=== PATIENT | female | born 1980 | race Caucasian/White ===

== ENCOUNTER → 2018-03-16 15:59 | Outpatient (CLI) | payer OTHER, SELFPAY | PROVIDERS: Family Provider Family Medicine; PCP Family Medicine; Visit Provider Family Medicine | DX: M79.646 Pain in unspecified finger(s) (principal) | CPT/HCPCS: 73130 ==

== ENCOUNTER 2018-03-18 06:58 | Day surgery (SDC) | payer OTHER, SELFPAY ==
[2018-03-13 11:00] LABS: Absolute Lymphocyte Count 1.36 X10^3/ul (0.83-4.51); Absolute Neutrophil Count 5.6 X10^3/uL (2.0-7.7); Basophil# 0.03 X10^3/uL; Basophil% 0.4 % (0-1); Eosinophil# 0.18 X10^3/uL; Eosinophils% 2.4 % (0-5); Hematocrit 41.7 % (37-47); Hemoglobin 13.7 g/dl (12.0-15.0); Lymphocyte # 1.36 X10^3/ul (4.0); Lymphocyte % 17.9 % (19-41); Mean Corp Hgb Conc 32.9 g/gl (32-36); Mean Corpuscular Hgb 30.5 pg (27.0-32.0); Mean Corpuscular Volume 92.9 fL (81-99); Mean Platelet Vol. 10.2 fl (6.2-12.0); Monocyte# 0.38 X10^3/uL; Neutrophil # 5.63 X10^3/uL (2.7-7.7); Neutrophil % 74.2 % (47-70); Platelet Count 302 K/mm3 (150-450); RBC Distribution Width CV 13.4 % (11.6-14.6); RBC Distribution Width SD 45.8 fl (35.1-43.9); Red Blood Count 4.49 M/mm3 (4.2-5.4); White Blood Count 7.6 K/mm3 (4.4-11.0)
[2018-03-13 11:07] LABS: POSITIVE COUNT NO; POSITIVE DIFFERENTIAL NO; POSITIVE MORPHOLOGY NO
--- NOTE | 2018-03-17 21:13 | PCM.HPOB.BLA ---
- Problem List (1) Abnormal uterine bleeding Status: Chronic (2) Uterine fibroid Status: Chronic Qualifiers: History and Physical Date of Admission: 03/18/18 Intake Visit Reasons: FU Accompanied by: Is patient in pain?: No Allergies No Known Allergies Allergy (Verified 01/19/18 11:01) Medications desogestrel 0.15 mg-ethinyl estradiol 0.03 mg tablet 1 tab PO QDAY #56 tab 01/19/18 [Rx Confirmed 01/19/18] Is last menstrual period known: Yes Last Menstral Period: 01/11/18 Post menopausal: No Patient : No : No PFSH Medical History Depression (Acute) Surgical History delivery delivered (Acute) H/O dilation and curettage (Acute) Family History Grandmother Breast cancer Social History Smoking Status: Never smoker alcohol intake: never substance use type: does not use caffeine: Yes what type of physical activity do you participate in: walking seatbelt use: always do you feel safe at home: Yes additional social history: Daniel Jaramillo 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 she hasn't taken the celexa. she is feeling better, had no bleeding and then now had breakthrough bleeding with clots. her and her are wanting to proceed with a hysterectomy Female Reproductive History Last Menstral Period: 01/11/18 Pregancy History 4 Elective abortions Hx Para 2 Spontaneous abortions Hx # Term Pregnancies Ectopic pregnancies Hx # Pregnancies Multiple births # of living children Past Pregnancies Del. Date Name GA/Weeks Outcome Route Bth Weight Infant Gen Labor Lgth Anesthesia Del Locatn Provider FOB Unknown 2011 Misti live - full term Fede Unknown 2013 Ashly live - full term WHITNEY ROS Const Constitutional: Denies poor appetite, headache(s), fever(s), increased appetite, weight gain, weight loss or fatigue ENT ENT: Denies dry mouth GI GI: Reports as per HPI; denies vomiting, nausea, abdominal pain or constipation : Reports as per HPI Skin Skin/Breast: Denies hair loss, change in hair, dry skin, breast pain, breast skin changes or breast lump Exam Const General: cooperative, healthy appearing, comfortable, no acute distress, well developed Nutritional Appearance: average body habitus Orientation: alert HENMO Head: normal to inspection, normocephalic Ears: hearing grossly normal bilaterally, external ears normal Nose: external nose normal, nares normal Face and sinus: normal facial exam Neck Neck: normal visual inspection, trachea midline, no lymphadenopathy Thyroid: thyroid normal Resp Effort & Inspection: normal respiratory effort Musc Other: gross motor intact no deficits, full bilateral strength Skin General: no rashes or lesions noted Neuro Motor: muscle tone normal throughout Assessment & Plan Problems 1. Intramural and submucous leiomyoma of uterus D25.1; D25.0 2. Abnormal uterine bleeding N93.9 Plan discussed and recommend laparoscopic hysterectomy. discussed surgical risks including risks of anesthesia, infection, bleeding, injury to bowel, bladder or blood vessels, and patient wishes to proceed with surgery. Medications Refilled: desogestrel-ethinyl estradiol 0.15-0.03 mg (Apri) take only active pills discard inactive start new pack immediately 1 tab PO QDAY Discontinued: citalopram (Celexa) Discontinued Reason: Order Completed 20 mg PO QDAY Coding Level of Care Code Off vis,est,level 4 Diagnoses Intramural and submucous leiomyoma of uterus D25.1; D25.0 Uterine leiomyoma location: intramural and submucous Abnormal uterine bleeding N93.9
[2018-03-18] VITALS (14 sets, daily range): BP systolic 130–151; BP diastolic 64–89; PULSE 70–106; RESP 14–18; TEMP 36.3–37.1; O2SAT 95–100; BMI 32.7
--- NOTE | 2018-03-18 | HYST_PTH ---
PATIENT: KRYSTA MULLINS LOC: [facility] [place] U#:[id number] AGE/SX: 37/F ROOM: RE03/18/[address]: Dr. Radha Bender MD : 1980 BED: DIS: 03/19/2018 SPEC #: [id number] RECD: 03/18/18 13:47 STATUS: TAMI MARY #: [id number] MARÍA: 03/18/18 00:[address]: Radha Bender DEPT: SURGICAL PATHOLOGY RECD BY: Dennis Wilson ENTERED: 03/18/18 13:47 SP TYPE: HYSTERECT OTHR DR: Dr. Khanh Barron MD Tissues: Uterus, NOS Procedures: Surgery Specimen Level V HEADER OPERATION: Hysterectomy, lap-assisted vagina, BSO, cystoscopy PRE-OP DIAGNOSIS: Abnormal uterine bleeding, uterine fibroids TISSUE SUBMITTED: Uterus and bilateral fallopian tubes and fibroids MICROSCOPIC DIAGNOSIS Uterus, hysterectomy: Morcellated uterus Cervix ? no pathologic change. Endometrium ? transitional endometrium. Myometrium ? leiomyomas. Right and left fallopian tubes - no pathologic change. AM:kim 03/19/18 MICROSCOPIC DESCRIPTION Slides are reviewed. GROSS DESCRIPTION Received in fixative is one container labeled with the patient's name and designated uterus. The specimen consists of a morcellated uterus received in 15 pieces ranging in size from 1.7 cm to 12 cm and in aggregate weighing 315 gm. A distinct endometrial cavity is not identified. The presumed endocervical fragment measures 6 cm in length and a diameter of 3 cm. The presumed endocervical canal appears grossly unremarkable. The presumed endometrium is light laguna measures up to 0.2 cm in thickness and is free of grossly visible mass lesions. The specimen consists primarily of multiple rubbery nodules resembling leiomyomas and ranging in size from 0.5 to 4.3 cm in greatest dimension. On cut sections, the nodules have a rubbery appearance without areas of cyst formation or necrosis. Two of the larger fragments contain fallopian tubes that are similar in appearance having an average length of 5 cm and average diameters of 0.6 cm. No mass lesions are identified. The fimbriated ends are normal in appearance. Shipbuilding Draftsperson sections are submitted in ten cassettes as follows: 1 ? ectocervix and endocervix, 2-5 ? presumed endometrium and adjacent myometrium, 6 ? largest myometrial mass, 7 ? second largest myometrial mass, 8 ? third largest myometrial mass, 9 ? one fallopian tube, 10 ? the other fallopian tube. / AM:kim 03/18/18 TC:1 CPT: 32831
[2018-03-18] MEDS: Phenazopyridine 95 MG Tablet 190 MG PO (07:41)
[2018-03-18 07:52] LABS: Internal QC Validated? YES +Cl - CLEAR BKGD; Pregnancy, Urine Negative Negative
[2018-03-18] MEDS: Vasopressin 20 UNITS/ML Vial (10:20)
[2018-03-18] MEDS: Ketorolac 30 MG/ML Syringe IV ×2 (14:54→20:37)
--- NOTE | 2018-03-18 19:26 | PCM.DC.VHY ---
Discharge Diet: No Restrictions Discharge Activity: Return to Normal Activity, May Not Drive, May Shower May resume sexual activity in: 6-8 weeks Call your doctor if your incision/area has: Continuous Slow Oozing, Sudden Increased Bleeding, Increased Pain/ Swelling, Increased Redness, Foul Smelling Discharge Call your doctor if you observe: Fever of 101 or Higher, Inability to urinate, Inability to have a bowel movement, Using more than one pad per hour Allergies/Adverse Reactions: Allergies No Known Allergies Allergy (Verified 03/11/18 10:46) Medications to take at Discharge desogestrel 0.15 mg-ethinyl estradiol 0.03 mg tablet 1 tab PO QDAY #56 tab 03/04/18 Calcium Carbonate/Vitamin D3 [Calcium 500 mg-Vit D3 600 Unit] 1 each PO DAILY 03/11/18 L.acidoph,Paracasei, B.lactis [Probiotic] 1 each PO DAILY 03/11/18 Magnesium 250 mg PO DAILY 03/11/18 Vit,Jose 74/Iron/Folic [Niva-Plus Tablet] 1 each PO DAILY 03/11/18 Naproxen [Naprosyn] 250 - 500 mg PO Q8H PRN PRN #30 tab 03/18/18 Oxycodone HCl/Acetaminophen [Percocet 5-325] 1 - 2 tablet PO Q4H PRN PRN 7 Days #15 tablet 03/18/18 The following prescriptions were given: Oxycodone HCl/Acetaminophen [Percocet 5-325] 1 - 2 tablet PO Q4H PRN PRN 7 Days #15 tablet PRN Reason: Pain Naproxen [Naprosyn] 250 - 500 mg PO Q8H PRN PRN #30 tab PRN Reason: MILD PAIN Primary Care Physician: Khanh Barron MD [Primary Care Provider] - Test Results: Test results from this visit will be discussed in further detail at your follow-up appointment, if applicable. Please Follow Up With: Radha Bender MD - [phone]
--- NOTE | 2018-03-18 19:27 | PCM.OPRPT ---
Problem List (1) Abnormal uterine bleeding Status: Chronic (2) Uterine fibroid Status: Chronic Qualifiers: Report of Operation Date of Procedure: 03/18/18 Pre-Operative Diagnosis: abNormal uterine bleeding and uterine fibroids Post-Operative Diagnosis: Same plus vesicouterine scar tissue and right simple ovarian cyst Surgery/Procedure Performed:: Laparoscopic assisted vaginal hysterectomy cystoscopy Description of Surgical Findings:: Vesicouterine scar tissue, significant pelvic congestion. Enlarged uterus weighing 333 g with multiple fibroids. Right ovary containing a 4 cm simple ovarian cyst process control technician: Delmis Echevarria Type of Anesthesia:: General Special Medications: Venu Specimen's removed: Uterus fibroids fallopian tubes Drains: Nowak Estimated Blood Loss (mL): 150 cc Fluids Replaced: Crystalloid Description of Procedure: Patient received preoperative antibiotics and SCDs were on preoperatively. Patient was taken back to the operating room and placed in the dorsal lithotomy position. General anesthesia was induced and patient was prepped and draped in normal sterile fashion. Uterine manipulator was placed inside the uterus and Nowak catheter placed in the bladder. The umbilicus was grasped with towel clamps and an intraumbilical incision was made after injecting with quarter percent Marcaine and a Veress needle entered into the abdomen confirmed to be intra-abdominal with a low opening pressure. Abdomen was insufflated with CO2 gas and the Veress needle removed and the 5 mm trocar was placed under direct visualization without complication. Right and left lower quadrants were transilluminated and injected with quarter percent Marcaine and 5 mm ports placed under direct visualization. Pelvis was well visualized see operative findings for additional information. Bilateral fallopian tubes were identified and transected with the LigaSure device across the mesosalpinx to the level of the utero-ovarian ligament which was also transected with the LigaSure device. The broad ligament was opened up by transecting the round ligament bilaterally and skeletonizing the uterine vessels bilaterally. Significant pelvic congestion was noted and care was taken to transect these vessels with great care minimizing blood loss. Significant utero vesical adhesions were noted which were taken down sharply and bluntly with the LigaSure device. The plane was developed creating a bladder flap using the LigaSure device. The uterine arteries were transected bilaterally with good visualization of the bladder and the ureters were seen to be inferior lateral to the operative area. Attention was then paid to the vaginal portion of the procedure and the cervix was grasped with Diogenes clamps and circumferentially injected with dilute vasopressin. A circumferential incision was made and the vaginal mucosa was mobilized off posteriorly and the cul-de-sac entered into sharply and a longneck speculum placed. The anterior cul-de-sac was then identified and entered into sharply. The uterosacral ligaments were clamped cut and suture ligated with 0 Monocryl bilaterally followed by the cardinal ligaments which were clamped cut and suture ligated bilaterally with 0 Monocryl. The uterus serially descended and was removed without difficulty with a combination of multiple myomectomies and morcellation vaginally. Pelvic sidewall pedicles were checked and noted to have excellent hemostasis. The vaginal mucosa was reapproximated incorporating the posterior peritoneum. This was reapproximated using 0 Vicryl [id number] sutures. Excellent hemostasis was noted. The cystoscopy was then performed and bilateral ureteral strong spray was noted and the bladder was noted to have no abnormality or lesions seen. Nowak catheter was replaced and then attention paid to the abdominal portion of the procedure again. The pelvis and cul-de-sac was well visualized and no significant active bleeding noted but some raw areas were seen on the peritoneum and therefore Venu was applied. Pressure was taken down and the areas visualized and noted of excellent hemostasis. All ports were removed under direct visualization without complication and the abdomen was desufflated of air. The instruments removed from the abdomen and the vagina vaginal sweep was negative. Port sites on the abdomen were closed with 4-0 Monocryl interrupted sutures and Steri's and windows were applied. She was awoken and taken recovery in stable condition. - Complications None
[2018-03-18] MEDS: Lactated Ringers 1,000 ML 125 ML IV (21:50)
[2018-03-19] MEDS: Acetaminophen 500 MG Tablet 1000 MG PO (01:19)
[2018-03-19 03:05] VITALS: BP 135/77; PULSE 77; RESP 16; TEMP 36.6; O2SAT 99
[2018-03-19] MEDS: Ketorolac 30 MG/ML Syringe IV ×2 (03:07→09:08)
[2018-03-19] MEDS: 0.9% NaCl Peripheral Flush Adult/Peds IV (03:07)
[2018-03-19 06:23] LABS: Hematocrit 36.6 % (37-47); Hemoglobin 12.1 g/dl (12.0-15.0); Mean Corp Hgb Conc 33.1 g/gl (32-36); Mean Corpuscular Hgb 30.6 pg (27.0-32.0); Mean Corpuscular Volume 92.4 fL (81-99); Mean Platelet Vol. 9.7 fl (6.2-12.0); Platelet Count 261 K/mm3 (150-450); RBC Distribution Width CV 13.2 % (11.6-14.6); RBC Distribution Width SD 44.3 fl (35.1-43.9); Red Blood Count 3.96 M/mm3 (4.2-5.4); White Blood Count 7.8 K/mm3 (4.4-11.0)
[2018-03-19 06:28] LABS: Scan Indicated on CBC? Y/N NO
[2018-03-19 08:07] VITALS: O2SAT 96
--- NOTE | 2018-03-19 08:27 | PCM.PROGNOTE ---
Subjective: Doing well. No SOB, CP. Up and ambulating. Plans home today - Physical Exam General: Alert, Oriented x3 Abdomen: Soft, Non-Distended, - - minimal tenderness with exam; dressing dry and intact X 3 Vital Signs Temp Pulse Resp BP Pulse Ox 97.9 F 77 16 135/77 H 99 03/19/18 03:05 03/19/18 03:05 03/19/18 03:05 03/19/18 03:05 03/19/18 03:05 Oxygen Delivery Method Room Air Weight: 196 lb 13.965 oz Body Mass Index (BMI) 32.7 Intake and Output for Last 24 Hours 03/17/18 03/18/18 03/19/18 23:59 23:59 23:59 Intake Total 2616 / 2616 2182 / 2182 Output Total 480 / 480 1500 / 1500 Balance 2136 / 2136 682 / 682 Laboratory Tests Past 24 Hrs 03/19/18 06:00 WBC 7.8 RBC 3.96 L Hgb 12.1 Hct 36.6 L MCV 92.4 MCH 30.6 MCHC 33.1 RDW 13.2 RDW Differential 44.3 H Plt Count 261 MPV 9.7 Medical Necessity - Tobacco Use Smoking Status: Never smoker Assessment/Plan LAV POD#1: Pain well controlled. Routine care. Plans home today
[2018-03-19 09:04] VITALS: BP 126/73; PULSE 79; RESP 18; TEMP 36.7; O2SAT 99
[2018-03-19] MEDS: Enoxaparin 40 MG/0.4 ML Syringe SC (09:08)
[2018-03-19 10:15] VITALS: BP 126/73; PULSE 79; RESP 18; TEMP 36.7; O2SAT 99
== END 2018-03-19 10:17 | disposition home or self-care (01) ==
LOC: SDC 07:00 → AC 07:01 → MS3 08:58
PROVIDERS: Family Provider Family Medicine; PCP Family Medicine; Visit Provider Obstetrics & Gynecology
PROC: 0UT9FZZ Resection of Uterus, Via Natural or Artificial Opening With Percutaneous Endoscopic Assistance (ICD-10-PCS; CPT 52000; principal; 2018-03-18 08:05)
DX: N93.9 Abnormal uterine and vaginal bleeding, unspecified (principal); N83.291 Other ovarian cyst, right side; D25.1 Intramural leiomyoma of uterus; D25.0 Submucous leiomyoma of uterus
CPT/HCPCS: 00840; 52000; 58552; 36415; 81025; 85025; 85027; 86850; 86900; 88307; J7120; A4216; J2405

== ENCOUNTER → 2018-08-02 10:02 | Outpatient (CLI) | payer OTHER, SELFPAY ==
--- NOTE | 2018-08-02 10:15 | US_ITS ---
STUDY: ABDOMINAL ULTRASOUND REASON FOR EXAM: Female, 37 years old. Epigastric pain extending to the right upper quadrant in the back TECHNIQUE: Transabdominal ultrasound was performed with real-time and static morel scale imaging. TECHNICAL QUALITY: Adequate. COMPARISON: None. FINDINGS: Liver: The liver measures 14.2 cm. There is normal echogenicity of the liver. The bile ducts are within normal limits. There is hepatic color flow. The direction of portal flow is hepatopetal. Hypoechoic mass in the posterior right lobe the liver measuring 3.3 x 2.9 x 3.0 cm. Likely a hemangioma. Gallbladder: Normal distended gallbladder. The gallbladder wall measures 2 mm. There is a negative sonographic Galvez's sign. There is no pericholecystic fluid. There are no gallstones. Common Bile Duct (C.B.D.): The common bile duct measures 3 mm. Pancreas: Normal size of the head, body and tail of the pancreas. There is normal echogenicity of the pancreas. There is no demonstrated pancreatic mass or cyst. Spleen: Normal size of the spleen. The spleen measures 13.9 cm. Right Kidney: Normal size of the right kidney. The right kidney measures 12.4 cm. Normal renal cortex. The right cortex measures 1.3 cm. There is no demonstrated renal mass or cyst. There is no right hydronephrosis. Left Kidney: Normal size of the left kidney. The left kidney measures 12.1 cm. Normal renal cortex. The left cortex measures 1.5 cm. There is no demonstrated renal mass or cyst. There is no left hydronephrosis. Aorta: Within normal limits I.V.C.: The IVC is patent. There is no ascites. US/Abdomen Complete IMPRESSION: Hyperechoic lesion in the right lobe of the liver, likely hemangioma. Remainder is within normal limits. Electronically Signed: Niranjan Sharif DO at 11:36 EST Tel , Service support ,
[2018-08-02 10:35] LABS: AST(SGOT) 19 U/L (15-37); Alanine Aminotransfer ALT/SGPT 22 U/L (13-56); Albumin, Serum 4.3 g/dL (3.2-5.0); Alkaline Phosphatase 85 U/L (45-117); Anion Gap 10 (5-15); BUN 12 mg/dL (7-18); BUN/Creat Ratio 14.4 RATIO (10-20); Calcium,Total 9.5 mg/dL (8.5-10.1); Chloride 105 mmol/L (98-107); Creatinine, Serum 0.84 mg/dL (0.55-1.02); EST Glomerular Filtration Rate 82 mL/min (>60); Est Glom Filt Rate - Afr Amer 100 mL/min (>60); Globulin 4.1 g/dL (2.2-4.2); Glucose 86 mg/dL (74-106); Lipase 140 U/L (73-393); Potassium 3.9 mmol/L (3.5-5.1); Protein, Total 8.4 g/dL (6.4-8.2); Sodium Level 140 mmol/L (136-145)
== END ==
PROVIDERS: Family Provider Family Medicine; PCP Family Medicine; Referring Provider Nurse Practitioner Family; Visit Provider Nurse Practitioner Family
DX: R10.13 Epigastric pain (principal)
CPT/HCPCS: 36415; 76700; 80053; 83690

== ENCOUNTER → 2018-08-03 16:33 | Outpatient (CLI) | payer OTHER, SELFPAY ==
[2018-04-29 13:52] VITALS: BMI 32.9
[2018-08-03 17:04] LABS: Absolute Lymphocyte Count 2.05 X10^3/ul (0.83-4.51); Absolute Neutrophil Count 5.1 X10^3/uL (2.0-7.7); Basophil# 0.02 X10^3/uL; Basophil% 0.3 % (0-1); Eosinophil# 0.15 X10^3/uL; Eosinophils% 1.9 % (0-5); Hematocrit 43.2 % (37-47); Hemoglobin 14.3 g/dl (12.0-15.0); Lymphocyte # 2.05 X10^3/ul (4.0); Mean Corp Hgb Conc 33.1 g/gl (32-36); Mean Corpuscular Hgb 31.2 pg (27.0-32.0); Mean Corpuscular Volume 94.1 fL (81-99); Monocyte# 0.53 X10^3/uL; Monocyte% 6.7 % (0-10); Neutrophil # 5.12 X10^3/uL (2.7-7.7); POSITIVE COUNT NO; POSITIVE DIFFERENTIAL NO; POSITIVE MORPHOLOGY NO; Platelet Count 261 K/mm3 (150-450); RBC Distribution Width CV 13.3 % (11.6-14.6); RBC Distribution Width SD 45.7 fl (35.1-43.9); Red Blood Count 4.59 M/mm3 (4.2-5.4); White Blood Count 7.9 K/mm3 (4.4-11.0)
== END ==
PROVIDERS: Family Provider Family Medicine; PCP Family Medicine; Referring Provider Nurse Practitioner Family; Visit Provider Nurse Practitioner Family
DX: R10.13 Epigastric pain (principal)
CPT/HCPCS: 36415; 85025

== ENCOUNTER → 2019-01-07 14:30 | Outpatient (CLI) | payer OTHER, SELFPAY ==
[2018-04-29 13:52] VITALS: BMI 32.9
--- NOTE | 2019-01-07 | IMM_PTH ---
PATIENT: KRYSTA MULLINS LOC: [facility] U#:[id number] AGE/SX: 44/F ROOM: RE01/07/[address]: Dr. Khanh Barron MD : 1980 BED: DIS: SPEC #: [id number] RECD: 01/10/19 11:34 STATUS: TAMI REBoubacar #: [id number] MARÍA: 01/07/19 00:[address]: Khanh Barron DEPT: IMMUNOHISTOCHEMISTRY RECD BY: Sandro Manzano Tissues: Arm, NOS Procedures: DESMIN (add) Smooth Muscle Actin [facility]YSIC[facility] IN[facility] [place] [id number] SPECIMEN INFORMATION: Tissue Source: Mass, right upper arm, soft tissue Clinical Info: Mass (subcutaneous) right upper arm Specimen Number: [id number] CPT code: 47122, 55965 METHODOLOGY: Deparaffinized sections of prefer/formalin-fixed tissue or PAP/DQ stained slides are incubated with monoclonal/polyclonal antibodies/oligonucleotide probes. Localization is made via biotin free immunoperoxidase method. Appropriate controls are performed and reacted as expected. Results on target cell population are indicated in the following table: RESULTS: ANTIBODY / CLONE RESULT Actin (1A4) positive Desmin (CE-R-11) positive These tests were developed and their performance characteristics determined by [facility]. They may not have been cleared or approved by the U.S. Food and Drug Administration. The FDA has determined that such clearance or approval is not necessary. INTERPRETATION: Mass, right upper arm soft tissue: Leiomyoma
--- NOTE | 2019-01-07 10:45 | MASS_PTH ---
PATIENT: KRYSTA MULLINS LOC: [facility] U#:[id number] AGE/SX: 44/F ROOM: RE01/07/[address]: Dr. Khanh Barron MD : 1980 BED: DIS: SPEC #: [id number] RECD: 01/07/19 12:03 STATUS: TAMI MARY #: [id number] MARÍA: 01/07/19 10:[address]: Khanh Barron DEPT: SURGICAL PATHOLOGY RECD BY: Rand Douglas Tissues: Arm, NOS Procedures: Surgery Specimen Level IV HEADER OPERATION: Excision right upper arm PRE-OP DIAGNOSIS: Mass (subcutaneous) right upper arm TISSUE SUBMITTED: Mass right upper arm soft tissue MICROSCOPIC DIAGNOSIS Mass right upper arm soft tissue: Consistent with subcutaneous leiomyoma. See comment and RF report. FA:kim 01/10/19 COMMENT Immunohistochemistry ([id number]) supports the above diagnosis. IDC with Dr. Maycol Holcomb MD who cocurs with above diagnosis. MICROSCOPIC DESCRIPTION Slides are reviewed. GROSS DESCRIPTION Received in fixative is one container labeled with the patient's name and designated mass right upper arm soft tissue. The specimen consists of a laguna-white nodular portion of firm tissue measuring 0.9 x 0.9 x 0.8 cm. The cut surface demonstrates a central cystic structure measuring 0.2 cm in diameter. The specimen is totally submitted in one cassette. / CE:ikm 01/07/19 TC:1 CPT: 88343
== END ==
PROVIDERS: Family Provider Family Medicine; PCP Family Medicine; Referring Provider Family Medicine; Visit Provider Family Medicine
DX: M79.9 Soft tissue disorder, unspecified (principal)
CPT/HCPCS: 88305; 88341; 88342

== ENCOUNTER → 2020-01-06 08:16 | Outpatient (CLI) | payer OTHER, SELFPAY ==
[2020-01-05 08:48] VITALS: BMI 32.9
[2020-01-06 08:41] LABS: Cholesterol 130 mg/dL (200); Glucose 90 mg/dL (74-106); High Density Lipoprotein 78 mg/dL; Triglycerides 47 mg/dL; Very Low Density Lipoprotein 9 mg/dL (5-40)
== END ==
PROVIDERS: PCP Family Medicine; Referring Provider Obstetrics & Gynecology; Visit Provider Obstetrics & Gynecology
DX: Z13.220 Encounter for screening for lipoid disorders (principal); Z13.1 Encounter for screening for diabetes mellitus
CPT/HCPCS: 36415; 80061; 82947

== ENCOUNTER → 2020-03-27 16:03 | Outpatient (CLI) | payer OTHER, SELFPAY ==
[2020-01-05 08:48] VITALS: BMI 32.9
== END ==
LOC: MFPLAB 16:04 → LABSPEC 16:04
PROVIDERS: PCP Family Medicine; Referring Provider Family Medicine; Visit Provider Family Medicine
DX: Z20.828 Contact with and (suspected) exposure to other viral communicable diseases (principal)
CPT/HCPCS: 87635; U0003

== ENCOUNTER 2020-04-11 08:58 | Observation (INO) | payer OTHER, SELFPAY ==
[2020-01-05 08:48] VITALS: BMI 32.9
[2020-04-11] VITALS (12 sets, daily range): BP systolic 108–143; BP diastolic 62–100; PULSE 78–109; RESP 17–19; TEMP 36.3–37.3; O2SAT 94–100; BMI 26.2; BMI 26.3
--- NOTE | 2020-04-11 09:45 | EKG12_ITS ---
Test Reason : Blood Pressure : / mmHG Vent. Rate : 087 BPM Atrial Rate : 087 BPM P-R Int : 154 ms QRS Dur : 108 ms QT Int : 368 ms P-R-T Axes : 074 045 063 degrees QTc Int : 442 ms Normal sinus rhythm Normal ECG Confirmed by DARLEEN VITALE, CADY ([id number]), electronic news gathering editor WALLACE SANDRA ([id number]) on 04/13/2020 1:06:09 PM Referred By: Confirmed By:CADY MOREJON MD
--- NOTE | 2020-04-11 09:53 | ED.DCSUM_ITS ---
- ER Visit Summary Date of Service: 04/11/20 Chief Complaint: Chest pain History of Present Illness: The patient is a 39 F presenting with chest pain. Patient states this started yesterday. She has had intermittent episodes of sharp chest pain. She was diagnosed with COVID on March 27, 2020. She judah es fever or cough currently. She has had nausea and diarrhea. She lost her sense of taste and smell. She also complains of right upper quadrant abdominal pain. She tried Tylenol and ibuprofen at home. Physical Examination: Vitals are stable. Patient is afebrile. Alert no acute distress. HEENT exam is unremarkable. Neck is supple. Lungs are clear and equal bilaterally. Heart is regular and tachycardic Abdomen is soft right upper quadrant tenderness with no guarding or rebound Extremities are unremarkable. Skin is warm and dry. No focal neurologic deficit. Remainder of exam is unremarkable. Emergency Department Course and Treatment: EKG is sinus rhythm rate of 87 with no acute ischemic changes. CBC, chemistries unremarkable. Liver lipase are normal. Urinalysis unremarkable. Troponin is negative. hCG negative. CTA chest shows focal irregular increased markings at the right lung base posteriorly. This may represent a focal area of either early infiltrate or atelectasis. No consolidation is seen. With ambulation at bedside her pulse ox is 87 to 88% on room air. She becomes dyspneic with ambulation and with talking. Discussed with hospitalist for observation. Disposition: Observation Impression: COVID, hypoxia This note was generated with [employer] dictation software. It may contain incorrect words, spelling, and punctuation that were not noted in review of the chart prior to signing ED Disposition - Plan for ED Patient: Referrals: Khanh Sears MD [Primary Care Provider] -
[2020-04-11 10:02] LABS: Absolute Lymphocyte Count 1.13 X10^3/uL (0.83-4.51); Absolute Neutrophil Count 4.2 X10^3/uL (2.0-7.7); Basophil# 0.02 X10^3/uL; Basophil% 0.3 % (0-1); Eosinophil# 0.14 X10^3/uL; Eosinophils% 2.4 % (0-5); Hematocrit 43.7 % (37-47); Hemoglobin 14.5 g/dL (12.0-15.0); Lymphocyte # 1.13 X10^3/ul (4.0); Mean Corp Hgb Conc 33.2 g/dL (32-36); Mean Corpuscular Hgb 31.5 pg (27.0-32.0); Mean Corpuscular Volume 94.8 fL (81-99); Mean Platelet Vol. 9.4 fl (6.2-12.0); Monocyte# 0.41 X10^3/uL; Monocyte% 6.9 % (0-10); NRBC Flagged by Analyzer 0 % (0-5); Neutrophil # 4.23 X10^3/uL (2.7-7.7); Neutrophil % 71.2 % (47-70); Platelet Count 269 K/mm3 (150-450); RBC Distribution Width CV 11.9 % (11.6-14.6); RBC Distribution Width SD 40.9 fl (35.1-43.9); Red Blood Count 4.61 M/mm3 (4.2-5.4); White Blood Count 5.9 K/mm3 (4.4-11.0)
--- NOTE | 2020-04-11 10:07 | NURSING ---
NO OLD EKGS
[2020-04-11 10:12] LABS: Internal QC Validated? YES +Cl - CLEAR BKGD; Pregnancy, Serum, hCG Quali. NEGATIVE Negative
[2020-04-11 10:14] LABS: ALB/GLOB Ratio 1.1 RATIO (0.9-2.4); AST(SGOT) 31 U/L (15-37); Alanine Aminotransfer ALT/SGPT 48 U/L (13-56); Albumin, Serum 4.3 g/dL (3.2-5.0); Alkaline Phosphatase 89 U/L (45-117); Anion Gap 2 (5-15); BUN 18 mg/dL (7-18); BUN/Creat Ratio 22.2 RATIO (10-20); Calcium,Total 9.5 mg/dL (8.5-10.1); Chloride 106 mmol/L (98-107); Creatinine, Serum 0.81 mg/dL (0.55-1.02); EST Glomerular Filtration Rate 85 mL/min (>60); Est Glom Filt Rate - Afr Amer 102 mL/min (>60); Estimated Creatinine Clearance 85.57 ml/min; Glucose 91 mg/dL (74-106); Lipase 141 U/L (73-393); Potassium 4.1 mmol/L (3.5-5.1); Protein, Total 8.3 g/dL (6.4-8.2); Sodium Level 140 mmol/L (136-145)
--- NOTE | 2020-04-11 10:48 | CT_ITS ---
STUDY: CTA CHEST REASON FOR EXAM: Female, 39 years old. +COVID WITH SOB AND CHEST TIGHTNESS RADIATION DOSAGE (If Supplied By Facility): CTDIvol = ( 5.10 ) mGy, DLP = ( 142.85 ) mGycm TECHNIQUE: The examination was performed with the intravenous administration of IV 100mL Isovue-370. Post-processing of the angiographic images was performed, with multiplanar reformation and 3D reconstruction. Individualized dose optimization techniques were used for this CT. COMPARISON: None. FINDINGS: Normal enhancement of the main pulmonary artery and right and left pulmonary arteries. Normal enhancement of the bilateral peripheral pulmonary arteries. There is no demonstrated pulmonary embolism. Normal thoracic aorta and visualized great vessels. There is no demonstrated aortic dissection. Normal heart and pericardium. Normal mediastinum. Normal hilar regions. Normal visualized trachea and bronchi. The lungs are well expanded. Focal area of increased density in the posterior aspect of the right lower lobe. No definite consolidation is seen. Normal pleura. Normal chest wall structures. Normal osseous structures. Normal visualized upper abdomen. CT/CTA Chest W/WO Contrast IMPRESSION: Focal irregular increased markings at the right lung base posteriorly. This may represent a focal area of either early infiltrate or atelectasis. No consolidation is seen. Electronically Signed: Chidi Dunham, at 11:10 EDT , Service support ,
[2020-04-11 10:51] LABS: Mucous, Urine 0 SEEN /hpf (<or=2+); Red Blood Cells-Urine 0 SEEN /hpf (0-5)
[2020-04-11 10:55] LABS: Color, Urine Straw (Yellow); Glucose, Dipstick Normal (Normal); Ketone-Dipstick Negative (Negative); Leukocyte Esterase-Dipstick Negative /ul (Negative); Nitrite-Dipstick Negative (Negative); Occult Blood-Urine Negative /ul (Negative); Protein-Dipstick Negative (Negative); Specific Gravity, Urine 1.005 (1.002-1.030); Urine Bilirubin Dipstick Negative (Negative); Urine Clarity Clear (Clear); Urine Urobilinogen Normal (Normal)
[2020-04-11 11:02] LABS: Bacteria 1+ /hpf (None Seen); Squamous Epithelial Cells - UA 0-5 SEEN /hpf (5-10); White Blood Cells 0-5 SEEN /hpf (0-5)
[2020-04-11 11:08] LABS: Amorphous Sediment 1+
--- NOTE | 2020-04-11 12:01 | NURSING ---
DR YVON GARCIA
--- NOTE | 2020-04-11 12:13 | NURSING ---
MED SURG WHITE COVID, HYPOXIA
--- NOTE | 2020-04-11 12:16 | HP.PCM_ITS ---
Problem List (1) Hypoxia Status: Acute (2) COVID-19 Status: Acute (3) History of depression Status: Chronic History of Present Illness Date of Admission: 04/11/20 Chief Complaint: Pleuritic chest pain, dyspnea, nausea, emesis and loose stools, recent + COVID testing. The patient is a 39 y/o F w/ PMHx: Post- depression history otherwise healthy who presents to the [facility] ED on 04/11/20 with history of recent onset more mild COVID type symptoms per her spouse on 03/17 with positive testing on 03/22/2020 prompting his quarantine with then onset of symptoms for this patient on 03/25/2020 including headache, sinus pressure and discomfort in addition to congestion and rhinorrhea concurrently as well as body aches and low-grade temperatures with cough following starting on 03/26/2020 and associated loss of taste or smell now returned completing a 10-day required quarantine per the health department following which she felt some improvement and thought she was improved except noted right sided chest discomfort 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 Work-up in the ED included T 97.3, heart rate 109, BP 143/87, respiratory rate 18, noted to be 100% on room air however with ambulation patient desaturated to 87%, CBC with WC 5.9, hemoglobin 14.5, platelet 269 without market shift, d-dimer less than 0.27, CMP unremarkable, troponin less than 0.015, lipase 141, negative serum testing, unremarkable urinalysis, chest CTA with a focal irregular increased marking at the right lung base posteriorly possibly atelectasis versus early infiltrate with no evidence of consolidation. 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 Psychiatric History: - - Hx post- depression, resolved. [employer] History: spontaneous , uterine fibroids Lives: Spouse/ Significant Other - Lives with her spouse and 2 children. Smoking Status: Never smoker Tobacco Use: Non-smoker Alcohol: None Drugs: None - *Family History Maternal Family History: Family History (Last Reviewed 01/05/20 @ 08:48 by Marisela Garrett) Grandmother Breast cancer History Items: - - She denies any market maternal family history including heart disease, diabetes, cancer. Paternal Family History: Family History (Last Reviewed 01/05/20 @ 08:48 by Marisela Garrett) Grandmother Breast cancer History Items: Hypertension Review of Systems Constitutional: Reports: Anorexia, Malaise, Weakness, Fatigue. Denies: Chills, Fever, Weight Change HEENT: Reports: Head Aches, Nasal Congestion, Sinus Congestion, Sinus Drainage, Sore Throat Cardiovascular: Reports: Chest Pain. Denies: Chest Pressure, Chest Tightness, Light Headedness, Orthopnea, Palpitations, Syncope Respiratory: Reports: Cough, Pleuritic Pain, Shortness of Breath, Shortness of breath at rest, Shortness of breath upon exertion. Denies: Sputum production, Wheezing Gastrointestinal: Reports: Abdominal Pain, Diarrhea, Nausea, Vomiting Genitourinary: Denies: Dysuria Musculoskeletal: Reports: Back Pain, Joint Pain, Muscle pain. Denies: Joint Tenderness Skin: Denies: Rash, Wounds Neurological: Denies: Numbness, Tingling, Focal weakness Psychiatric: Reports: Depression - Hx depression, resolved.. Denies: Anxiety, Homicidal Ideations, Suicidal Ideations Hematologic/ Lymphatic: Denies: Easy Bruising, Easy Bleeding VTE Information - Inpt Only VTE Present on Admission: No VTE Mechan Device Prophylaxis: SCD's VTE Pharm Prophylaxis ordered?: Yes Patient Problems: Active and Suspected Problems (Last Reviewed 01/05/20 @ 08:48 by Marisela Garrett) Hypoxia (Acute) COVID-19 (Acute) Subjective: Patient seated upright in the ED bed, anxious, tearful with some of the discussions secondary to ongoing issues with COVID over the last month. Objective: Physical Examination: General: awake, alert, oriented x 3 and cooperative, seated upright in the ED bed, anxious and tearful with some discussions. Skin: normal color, turgor, no icterus, cyanosis except notable rosacea to the face and some facial acne around where the mask has been. HEENT: AT/NC, EOMI, PERRLA, mildly dry MM, no carotid bruits or JVD noted. Lungs: Diminished breath sounds, decreased effort, shallow breaths, greater bases, obvious rales or rhonchi even at the right base, no wheezing. Heart: Tachycardic with regular rhythm; no gallop, rub audible. Abdomen: soft, NTTP, mildly distended, hypoactive bowel sounds, no obvious HSM. Extremities: no cyanosis, clubbing, or edema. Neurological: patient awake, alert, oriented x 3; cognitive function intact; pupils equally reactive to light and accomodation; cranial nerves II-XII grossly normal, moving all 4 extremities, no focal deficits, strength mildly to moderately degree secondary to acute presentation. Psychiatric: affect appears fatigued, anxious, tearful, frustrated with ongoing symptoms secondary to COVID over the last month, no specific depressive feelings. - Physical Exam Vitals/I&O's: Vital Signs Temp Pulse Resp BP Pulse Ox 97.3 F L 109 H 18 143/87 H 100 04/11/20 09:03 04/11/20 09:03 04/11/20 09:03 04/11/20 09:03 04/11/20 09:03 Weight: 158 lb Body Mass Index (BMI) 26.2 Laboratory Results 04/11/20 09:35: WBC 5.9, RBC 4.61, Hgb 14.5, Hct 43.7, MCV 94.8, MCH 31.5, MCHC 33.2, RDW Std Deviation 40.9, RDW Coeff of [place]art[place] 11.9, Plt Count 269, MPV 9.4, Immature Gran % (Auto) 0.200, Neut % (Auto) 71.2 H, Lymph % (Auto) 19.0, [place] % (Auto) 6.9, Eos % (Auto) 2.4, Baso % (Auto) 0.3, Absolute Neuts (auto) 4.2, Absolute Lymphs (auto) 1.13, Nucleated RBC % 0 04/11/20 09:35: Sodium 140, Potassium 4.1, Chloride 106, Carbon Dioxide 32.0, Anion Gap 2 L, BUN 18, Creatinine 0.81, Estim Creat Clear Calc 85.57, Est GFR (MDRD) Af Amer 102, Est GFR (MDRD) Non-Af 85, BUN/Creatinine Ratio 22.2 H, Glucose 91, Calcium 9.5, Total Bilirubin 0.70, AST 31, ALT 48, Alkaline Phosphatase 89, Troponin I < 0.015, Total Protein 8.3 H, Albumin 4.3, Globulin 4.0, Albumin/Globulin Ratio 1.1, Lipase 141 04/11/20 09:35: Serum , Qual NEGATIVE 04/11/20 10:35: Urine Color Straw, Urine Clarity Clear, Urine pH 7.0, Ur Sp ecific [place] 1.005, Urine Protein Negative, Urine Glucose (UA) Normal, Urine Ketones Negative, Urine Occult Blood Negative, Urine Nitrite Negative, Urine Bilirubin Negative, Urine Urobilinogen Normal, Ur Leukocyte Esterase Negative, Urine RBC 0 SEEN, Urine WBC 0-5 SEEN, Ur Squamous Epith Cells 0-5 SEEN, Amorphous Sediment 1+, Urine Bacteria 1+, Urine Mucus 0 SEEN Assessment/Plan All Active Problems (Last Reviewed 01/05/20 @ 08:48 by Marisela Garrett) Hypoxia (Acute) COVID-19 (Acute) Abnormal uterine bleeding (Resolved) Uterine fibroid (Resolved) The patient is a 39 y/o F w/ PMHx: Post- depression history otherwise healthy who presents to the [facility] ED on 04/11/20 with history of recent onset more mild COVID type symptoms per her spouse on 03/17 with positive testing on 03/22/2020 prompting his quarantine with then onset of symptoms for this patient on 03/25/2020 including headache, sinus pressure and discomfort, congestion and rhinorrhea, body aches, low-grade temperatures, completing a 10-day required quarantine with now onset worsening right sided chest discomfort, nausea, emesis, abdominal cramping and diarrhea over the last several days. 1. Worsened dyspnea, pleuritic chest pain secondary to acute viral syndrome, COVID-19: Patient diagnosed on 03/27/2020 with coronavirus, completed a 10-day quarantine, clinically improved initially but over the last several days has had recurrent dyspnea, worsening pleuritic pain, nausea, emesis and diarrhea prompting ED evaluation. CTPA with no obvious evidence of consolidation, no WBC elevation or left shift, lower suspicion for over lapping bacterial infection. Will admit to the COVID unit given new symptoms especially with diarrhea secondary to concerns for shedding, maintain on judicious IV fluids, allow diet if able to tolerate, PRN antiemetic regimen, will maintain on scheduled Toradol for pleuritic discomfort likely secondary to atelectasis, will obtain procalcitonin, CRP, CPK, Ferritin, LDH, D-dimer as COVID markers, continue supportive care, plan repeat AM oxygenation testing for discharge planning. Discussed case with Infectious Disease and given her timeline will continue in- house isolation, but will not maintain on isolation at discharge but continue aggressive mask wearing. Also given re-presentation agreed with decadron administration. 2. History of Post- depression: Resolved, not on any treatments, several years prior following loss of two pregnancies and of her grandfather. 3. DVT prophylaxis: SCDs, lovenox. OBSV E&M: 35297 Initial observation care L3
--- NOTE | 2020-04-11 12:21 | NURSING ---
CVICU 202
[2020-04-11] MEDS: 0.9% Normal Saline 1,000 ML 150 ML IV ×2 (14:02→21:06)
[2020-04-11 14:29] LABS: CRP 6.97 mg/L (0.0-3.0); Ferritin 169 ng/mL (8-252); LDH 169 U/L (84-246); Magnesium 2.3 mg/dL (1.6-2.6)
[2020-04-11 14:38] LABS: Procalcitonin < 0.01 ng/mL (0.00-0.09)
[2020-04-11] MEDS: Enoxaparin 30 MG/0.3 ML Syringe SC ×2 (14:49→21:05)
[2020-04-11] MEDS: Ketorolac 30 MG/ML Syringe IV ×2 (14:50→21:11)
[2020-04-11] MEDS: 0.9% Saline Lock 10 ML Syringe IV ×3 (14:51→21:12)
[2020-04-11 15:11] LABS: D-Dimer Quantitative (DVT/PE) < 0.27 FEU/ug/m (0.27-0.49)
[2020-04-11] MEDS: dexAMETHasone 4 MG/ML Vial 6 MG IV (16:46)
[2020-04-11] MEDS: Acetaminophen 325 MG Tablet 650 MG PO ×2 (16:53→22:32)
[2020-04-11] MEDS: Famotidine 20 MG Tablet PO (21:06)
[2020-04-11] MEDS: MELATONIN 3 MG TABLET PO (22:31)
[2020-04-12] VITALS (10 sets, daily range): BP systolic 102–130; BP diastolic 59–76; PULSE 68–84; RESP 11–13; TEMP 36.6–36.9; O2SAT 98–100
[2020-04-12] MEDS: 0.9% Normal Saline 1,000 ML 150 ML IV (03:21)
[2020-04-12] MEDS: Acetaminophen 325 MG Tablet 650 MG PO ×2 (03:41→09:07)
[2020-04-12 03:58] LABS: Absolute Lymphocyte Count 0.72 X10^3/uL (0.83-4.51); Absolute Neutrophil Count 4.2 X10^3/uL (2.0-7.7); Basophil# 0.01 X10^3/uL; Basophil% 0.2 % (0-1); Eosinophil# 0.01 X10^3/uL; Eosinophils% 0.2 % (0-5); Hemoglobin 12.8 g/dL (12.0-15.0); Lymphocyte # 0.72 X10^3/ul (4.0); Lymphocyte % 14.2 % (19-41); Mean Corp Hgb Conc 32.8 g/dL (32-36); Mean Corpuscular Hgb 31.1 pg (27.0-32.0); Mean Corpuscular Volume 94.9 fL (81-99); Mean Platelet Vol. 9.5 fl (6.2-12.0); Monocyte# 0.18 X10^3/uL; Monocyte% 3.5 % (0-10); NRBC Flagged by Analyzer 0 % (0-5); Neutrophil # 4.15 X10^3/uL (2.7-7.7); Neutrophil % 81.7 % (47-70); Platelet Count 258 K/mm3 (150-450); RBC Distribution Width CV 11.8 % (11.6-14.6); RBC Distribution Width SD 41.1 fl (35.1-43.9); Red Blood Count 4.11 M/mm3 (4.2-5.4); White Blood Count 5.1 K/mm3 (4.4-11.0)
[2020-04-12 04:13] LABS: AST(SGOT) 19 U/L (15-37); Alanine Aminotransfer ALT/SGPT 36 U/L (13-56); Albumin, Serum 3.5 g/dL (3.2-5.0); Alkaline Phosphatase 71 U/L (45-117); Anion Gap 5 (5-15); BUN 15 mg/dL (7-18); BUN/Creat Ratio 24.8 RATIO (10-20); Calcium,Total 8.3 mg/dL (8.5-10.1); Chloride 109 mmol/L (98-107); Creatinine, Serum 0.61 mg/dL (0.55-1.02); EST Glomerular Filtration Rate 118 mL/min (>60); Est Glom Filt Rate - Afr Amer 143 mL/min (>60); Estimated Creatinine Clearance 113.62 ml/min; Globulin 3.4 g/dL (2.2-4.2); Glucose 119 mg/dL (74-106); Potassium 4.2 mmol/L (3.5-5.1); Protein, Total 6.9 g/dL (6.4-8.2); Sodium Level 140 mmol/L (136-145)
[2020-04-12] MEDS: 0.9% Saline Lock 10 ML Syringe IV ×2 (05:47→09:08)
[2020-04-12] MEDS: Ketorolac 30 MG/ML Syringe IV (05:47)
--- NOTE | 2020-04-12 09:06 | DCINST_ITS ---
- Discharge Diagnoses Current Active Problems: Current Active and Chronic Problems (Last Reviewed 01/05/20 @ 08:48 by Marisela Garrett) Worsened dyspnea, pleuritic chest pain secondary to viral syndrome, COVID-19 with exertional hypoxia in the ED (87% reported) You will use the following diet at home:: No restrictions Your food should be the consistency of: Regular Your liquids should be the consistency of: Regular/Thin Discharge Activity: - - Advise routine moderate activity until improved with resolution of your associated gastrointestinal and pulmonary symptoms. Call your doctor if you observe: Fever of 101 or Higher, Inability to urinate, Inability to have a bowel movement, Shortness of breath - Worsening., Dizziness, Fainting spells, Chest pain - Worsening., Uncontrolled pain Instructions: ED Chest Pain Noncardiac Ch, ED Chest Pain Pleurisy Additional Instructions: During the admission you were started on oral steroids which need to continue until completion as well as medications to assist with your right sided chest discomfort (mobic). We strongly encourage continued incentive spirometer (breathing appartus from hospital as discussed) 10x/hr e very hour during the daytime to assist with improvement. You ARE NOT on any type of quarantine per discussions with infectious disease. If you have ongoing pain to the right chest (clot, new pneumonia ruled out during admission) please see your primary care physician to assure nothing else is developing. Allergies/Adverse Reactions: Allergies albuterol Adverse Reaction (Verified 04/11/20 14:34) tachycardia Medications to take at Discharge Dexamethasone [Decadron] 6 mg PO DAILY 9 Days #9 tab 04/12/20 Meloxicam [Mobic] 15 mg PO DAILY #7 tab 04/12/20 The following prescriptions were given: Dexamethasone [Decadron] 6 mg PO DAILY 9 Days #9 tab Transmission Status: Pending to [facility] Meloxicam [Mobic] 15 mg PO DAILY #7 tab Transmission Status: Pending to [facility] Primary Care Physician: Khanh Sears MD [Primary Care Provider] - Please follow up with your Primary Care Physician in: Follow-up within 3-5 days to review admission. Test Results: Test results from this visit will be discussed in further detail at your follow- up appointment, if applicable. Proposed Discharge Date: 04/12/20
[2020-04-12] MEDS: Famotidine 20 MG Tablet PO (09:07)
[2020-04-12] MEDS: Enoxaparin 30 MG/0.3 ML Syringe SC (09:07)
--- NOTE | 2020-04-12 09:11 | NURSING ---
waiting on additional decadron from pharmacy to equal ordered dose
[2020-04-12] MEDS: dexAMETHasone 4 MG/ML Vial 6 MG IV (09:37)
--- NOTE | 2020-04-12 10:52 | PCM.DC.SUM ---
Discharge Date and Diagnosis - Problem List Patient Problems: Active and Suspected Problems (Last Reviewed 01/05/20 @ 08:48 by Marisela Garrett) Hypoxia (Acute) COVID-19 (Acute) Date of Admission: 04/11/20 Date of Discharge: 04/12/20 - Primary Discharge Diagnosis Acute Problems: Active Problems (Last Reviewed 01/05/20 @ 08:48 by Marisela Garrett) Worsened dyspnea, pleuritic chest pain secondary to viral syndrome, COVID-19 with exertional hypoxia in the ED (87% reported) - Secondary Discharge Diagnosis Chronic Problems: Chronic Problems (Last Reviewed 01/05/20 @ 08:48 by Marisela Garrett) History of depression (Chronic) Hospital Course and Treatment Operations: None Procedures: - - CTA chest, CXR, oxygenation assessment. Summary of Care Provided: The patient is a 39 y/o F w/ PMHx: Post- depression history otherwise healthy who presented to the [facility] ED on 04/11/20 with history of recent onset more mild COVID type symptoms per her spouse on 03/17 with positive testing on 03/22/2020 prompting his quarantine with then onset of symptoms for this patient on 03/25/2020 including headache, sinus pressure and discomfort in addition to congestion and rhinorrhea concurrently as well as body aches and low-grade temperatures with cough following starting on 03/26/2020 and associated loss of taste or smell now returned completing a 10-day required quarantine per the health department following which she felt some improvement and thought she was improved except noted right sided chest discomfort 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 Work-up in the ED included T 97.3, heart rate 109, BP 143/87, respiratory rate 18, noted to be 100% on room air however with ambulation patient desaturated to 87%, CBC with WC 5.9, hemoglobin 14.5, platelet 269 without market shift, d-dimer less than 0.27, CMP unremarkable, troponin less than 0.015, lipase 141, negative serum testing, unremarkable urinalysis, chest CTA with a focal irregular increased marking at the right lung base posteriorly possibly atelectasis versus early infiltrate with no evidence of consolidation. The patient was admitted to the COVID unit given new symptoms especially with diarrhea secondary to concerns for shedding, maintained on judicious IV fluids, allowed diet with advancement without issue, no recurrent diarrhea noted, no nausea or emesis, maintained on scheduled Toradol for pleuritic discomfort likely secondary to atelectasis. Patient remained afebrile, on room air even with ambulation trial 04/12/20 am. Patient with normal CPK, ferritin, LDH, D-dimer and procalcitonin, mild elevation CRP only. Discussed case with Infectious Disease and given her timeline continued in-house isolation, but upon her discharge recommended no further quarantine needs but appropriate mask wearing. During admission per discussion with ID, patient was initiated on decadron and continued for total of 10 day regimen upon discharge. She was transitioned to short course of mobic at discharge additionally. DAY OF DISCHARGE PROGRESS NOTE: Subjective: Patient without acute event overnight per self and nursing report. Patient denies fever, chills, nausea, emesis, abdominal pain.patient denied any specific worsening dyspnea. Patient remained on room air without issue even with oxygenation reassessment in AM. Patient noted that the Toradol helped significantly with her pleuritic discomfort but with certain activities and movements she did have recurrence. Patient agreeable to discharge to home with continued Decadron regimen as well as Mobic. 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 Objective: T 98.2, heart rate 71, BP 126/67, respiratory rate 12, 98% room air. Physical Examination: General: awake, alert, oriented x 3 and cooperative, seated upright in the ICU COVID unit bed, NAD, more rested but fatigued appearance. Skin: normal color, turgor, no icterus, cyanosis. HEENT: AT/NC, EOMI, PERRLA, MMM. Lungs: CTA bilaterally, moderate effort, moderate decrease BL bases, no rales, ronchi or wheezing; Heart: Regular rate and rhythm; no gallop, rub audible. Abdomen: soft, NTTP, resolution of prior noted mild distention, normalized BS. Extremities: no cyanosis, clubbing, or edema. Neurological: patient awake, alert, oriented x 3; cognitive function appears intact upon questioning,; pupils equally reactive to light and accomodation; cranial nerves II-XII grossly normal, moving all 4 extremities, strength improved, mildly global decrease. Psychiatric: affect appears less anxious, less tearful, more rested but still fatigued, no obvious evidence of depressive feelings. Assessment and Plan: Please see hospital summary above. Patient Problems: Active and Suspected Problems (Last Reviewed 01/05/20 @ 08:48 by Marisela Garrett) Hypoxia (Acute) COVID-19 (Acute) - Physical Exam Vitals/I&O's: Vital Signs Temp Pulse Resp BP Pulse Ox 98.4 F 73 13 130/76 H 99 04/12/20 08:42 04/12/20 08:42 04/12/20 08:42 04/12/20 08:42 04/12/20 10:47 Oxygen Delivery Method Room Air Weight: 158 lb Body Mass Index (BMI) 26.2 Intake and Output for Last 24 Hours 04/10/20 04/11/20 04/12/20 23:59 23:59 23:59 Intake Total 1800.0 / 1800.0 2142.5 / 2142.5 Balance 1800.0 / 1800.0 2142.5 / 2142.5 Microbiology Past 72 Hours 04/11/20 14:06 Mucosa - Nose Respiratory Panel (PCR) - Final Laboratory Results 04/11/20 09:35: D-Dimer Quant (PE/DVT) < 0.27 L 04/11/20 09:35: Magnesium 2.3, Ferritin 169, Lactate Dehydrogenase 169, C-React Prot Ext Range 6.97 H 04/11/20 09:35: Procalcitonin < 0.01 04/11/20 10:35: Urine Color Straw, Urine Clarity Clear, Urine pH 7.0, Ur Specific [place] 1.005, Urine Protein Negative, Urine Glucose (UA) Normal, Urine Ketones Negative, Urine Occult Blood Negative, Urine Nitrite Negative, Urine Bilirubin Negative, Urine Urobilinogen Normal, Ur Leukocyte Esterase Negative, Urine RBC 0 SEEN, Urine WBC 0-5 SEEN, Ur Squamous Epith Cells 0-5 SEEN, Amorphous Sediment 1+, Urine Bacteria 1+, Urine Mucus 0 SEEN 04/12/20 03:35: WBC 5.1, RBC 4.11 L, Hgb 12.8, Hct 39.0, MCV 94.9, MCH 31.1, MCHC 32.8, RDW Std Deviation 41.1, RDW Coeff of [place] 11.8, Plt Count 258, MPV 9.5, Immature Gran % (Auto) 0.200, Neut % (Auto) 81.7 H, Lymph % (Auto) 14.2 L, [place] % (Auto) 3.5, Eos % (Auto) 0.2, Baso % (Auto) 0.2, Absolute Neuts (auto) 4.2, Absolute Lymphs (auto) 0.72 L, Nucleated RBC % 0 04/12/20 03:35: Sodium 140, Potassium 4.2, Chloride 109 H, Carbon Dioxide 26.0, Anion Gap 5, BUN 15, Creatinine 0.61, Estim Creat Clear Calc 113.62, Est GFR (MDRD) Af Amer 143, Est GFR (MDRD) Non-Af 118, BUN/Creatinine Ratio 24.8 H, Glucose 119 H, Calcium 8.3 L, Total Bilirubin 0.50, AST 19, ALT 36, Alkaline Phosphatase 71, Total Protein 6.9, Albumin 3.5, Globulin 3.4, Albumin/Globulin Ratio 1.0 Current Medications Acetaminophen (Tylenol) 650 mg PO Q4H PRN PRN PRN Reason: Pain Score 1-10/Temp > 100.7 F Last Admin: 04/12/20 09:07 Dose: 650 mg Documented by: Al Hydroxide/Mg Hydroxide (Mylanta Ii) 30 ml PO Q6H PRN PRN PRN Reason: Gastric Burning Albuterol Sulfate (Ventolin Aerosols) 2.5 mg INHALATION Q2H PRN PRN PRN Reason: Dyspnea, wheezing Dexamethasone Sodium Phosphate (Decadron) 6 mg IV DAILY [facility] Last Admin: 04/12/20 09:37 Dose: 6 mg Documented by: Enoxaparin Sodium (Lovenox) 30 mg SC BID [facility] Last Admin: 04/12/20 09:07 Dose: 30 mg Documented by: Famotidine (Pepcid) 20 mg PO BID [facility] Last Admin: 04/12/20 09:07 Dose: 20 mg Documented by: Guaifenesin (Robitussin) 20 ml PO Q4H PRN PRN PRN Reason: COUGH Hydralazine HCl (Apresoline Iv) 10 mg IV Q4H PRN PRN PRN Reason: SBP > 160 Sodium Chloride () 1,000 mls @ 150 mls/hr IV .Q6H40M ROLA Last Infusion: 04/12/20 09:43 Dose: 15 mls/hr Documented by: Ketorolac Tromethamine (Toradol (Bkc)) 30 mg IV Q8 ROLA Stop: 04/12/20 22:01 Last Admin: 04/12/20 05:47 Dose: 30 mg Documented by: Melatonin (Melatonin) 3 mg PO QHS PRN PRN PRN Reason: INSOMNIA Last Admin: 04/11/20 22:31 Dose: 3 mg Documented by: Ondansetron HCl (Zofran) 4 mg IV Q8H PRN PRN PRN Reason: NAUSEA/VOMITING Prochlorperazine Edisylate (Compazine Iv) 5 mg IV Q4H PRN PRN PRN Reason: Breakthrough nausea/vomiting Sodium Chloride () 10 - 40 ml IV UD PRN PRN Reason: SALINE FLUSH Last Admin: 04/12/20 09:08 Dose: 10 ml Documented by: Throat Lozenges (Cepacol Sore Throat Lozenge) 1 lozenge MUCOUS MEM Q2H PRN PRN PRN Reason: SORE THROAT Discharge Activity: - - Advise routine moderate activity until improved with resolution of your associated gastrointestinal and pulmonary symptoms. Call your doctor if you observe: Fever of 101 or Higher, Inability to urinate, Inability to have a bowel movement, Shortness of breath - Worsening., Dizziness, Fainting spells, Chest pain - Worsening., Uncontrolled pain Home Medications: Medications to take at Discharge Dexamethasone [Decadron] 6 mg PO DAILY 9 Days #9 tab 04/12/20 Meloxicam [Mobic] 15 mg PO DAILY #7 tab 04/12/20 Following Prescriptions Were Given to Patient: Dexamethasone [Decadron] 6 mg PO DAILY 9 Days #9 tab Transmission Status: Received by [facility] Meloxicam [Mobic] 15 mg PO DAILY #7 tab Transmission Status: Received by [facility] Primary Care Physician: Khanh Sears MD [Primary Care Provider] - Please follow up with your Primary Care Physician in: Follow-up within 3-5 days to review admission. Patient Instructions: ED Chest Pain Pleurisy, ED Chest Pain Noncardiac Ch Disposition: Home Minutes spent on discharge:: 35 Patient Condition:: Fair Medical Necessity - Tobacco Use Smoking Status: Never smoker Tobacco Use: Non-smoker Meaningful Use Info Meaningful Use Diagnoses (Choose all that apply): None applicable OBSV E&M: 39258 Observation care discharge
== END 2020-04-12 13:45 | disposition home or self-care (01) ==
LOC: ED 09:50 → ICU 12:28
PROVIDERS: Admitting Provider Family Medicine; Emergency Provider Emergency Medicine; PCP Family Medicine; Visit Provider Family Medicine
DX: U07.1 COVID-19 (principal); R09.02 Hypoxemia
CPT/HCPCS: 71275; 80053; 81001; 82728; 83615; 83690; 83735; 84145; 84484; 84703; 85025; 85379; 86140; 87633; 93005; 96361; 96372; 96374; 96375; 96376; 99218; 99251; 99285; J7030; Q9967; A4216; G0378; G0463

== ENCOUNTER → 2021-01-11 14:25 | Outpatient (CLI) | payer OTHER, SELFPAY ==
[2021-01-08 15:44] VITALS: BMI 26.2
--- NOTE | 2021-01-11 14:29 | BI_ITS ---
MAMMOGRAPHY - BILATERAL DIAGNOSTIC REASON FOR EXAM: Female, 40 years old. BREAST LUMP PERTINENT HISTORY: Non-contributory. TECHNIQUE: Digital examination. Mediolateral oblique (MLO) and craniocaudad (CC) views of both breasts were obtained. CAD: COMPARISON: None. FINDINGS: Breast Composition: Heterogeneously dense fibroglandular tissue which lower the sensitivity of mammography. The right breast tomosynthesis revealed 1 cm density surrounded by halo 2.2 cm behind the nipple of benign appearance. There are no dominant masses or suspicious calcifications. Skin thickening or nipple retraction, no microcalcifications or spiculated lesion. BI/DIAG MAMM W/CAD, BILAT IMPRESSION: 1 cm density surrounded by halo the right breast which is benign looking. Negative mammography for malignancy BIRADS- 2 ASSESSMENT CATEGORY: FOLLOW UP RECOMMENDATION: Approximately 10% of breast cancers are not detected by mammography. A normal mammogram should not delay biopsy of a clinically suspicious abnormality. Electronically Signed: Joseph Gooden, at 15:28 EDT Tel , Service support ,
== END ==
PROVIDERS: PCP Family Medicine; Referring Provider Obstetrics & Gynecology; Visit Provider Obstetrics & Gynecology
DX: N63.10 Unspecified lump in the right breast, unspecified quadrant (principal)
CPT/HCPCS: 77062; 77066; G0279

== ENCOUNTER 2021-09-08 12:11 | Emergency (ER) | payer BC, SELFPAY ==
[2021-09-08 12:12] VITALS: BP 128/92; PULSE 124; RESP 16; TEMP 36.2; O2SAT 100; BMI 32.2
[2021-09-08 13:35] LABS: Bacteria 0 SEEN /hpf (None Seen); Mucous, Urine 0 SEEN /hpf (<or=2+); Red Blood Cells-Urine 0 SEEN /hpf (0-5); Squamous Epithelial Cells - UA 0 SEEN /hpf (5-10); White Blood Cells 0 SEEN /hpf (0-5)
--- NOTE | 2021-09-08 13:37 | CT_ITS ---
STUDY: CT ABDOMEN AND PELVIS WITHOUT CONTRAST REASON FOR EXAM: Female, 40 years old. flank pain RADIATION DOSAGE (If Supplied By Facility): CTDIvol = ( 10.20 ) mGy, DLP = ( 488.40 ) mGycm TECHNIQUE: Transaxial images were obtained from the dome of the diaphragm to the symphysis pubis without oral contrast, and without intravenous contrast. Sagittal and coronal images were reconstructed. Individualized dose optimization techniques were used for this CT. COMPARISON: None. FINDINGS: The visualized lung bases are unremarkable. The visualized portions of the heart are within normal limits. 3.5 cm mass of decreased attenuation within the posterior segment the right lobe of the liver superiorly and correlation with liver protocol CT is recommended. Normal gallbladder and extrahepatic biliary system. Normal spleen. Normal pancreas. Normal bilateral adrenal glands. Normal right kidney. Normal left kidney. Normal visualized stomach. Normal small intestine. Normal colon. The appendix is visualized and appears normal. Normal abdominal aorta. Normal inferior vena cava. Normal retroperitoneum. Normal urinary bladder. Normal abdominal wall. Normal osseous structures. CT/Abdomen/Pelvis without Cont IMPRESSION: 1. No renal or ureteral stone. 2. 3.5 cm mass in the superior posterior segment the right lobe of the liver and correlation with liver protocol CT or MRI. Electronically Signed: Julius Robin MD at 14:20 EST ,
--- NOTE | 2021-09-08 13:38 | ED.VIS.GI ---
HPI HPI - GI History of Present Illness Chief Complaint: Flank Pain Narrative Narrative: 40-year-old female presenting with right-sided flank pain. She has no history of kidney stones. She states been present for a few days and came on rather abruptly. This pain does come and go. She describes it as sharp and radiating to the anterior abdomen but does not radiate into the inguinal region. She also states that this morning it radiated across the upper abdomen from right to left across her abdomen. She states she has mild nausea without vomiting. She denies diarrhea but admits to some constipation and hard stool today. She states yesterday she had regular bowel movement. No fever or chills. No urinary complaints. No vaginal complaints. 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[employer] ED Constitutional Constitutional ED: Denies chills or fever(s) ENT ENT ED: Denies rhinorrhea or sore throat Cardiovascular Cardiovascular: Denies chest pain or palpitations Respiratory/Chest Respiratory/Chest: Denies cough, dyspnea or sputum Gastrointestinal Gastrointestinal: Reports abdominal pain, constipation and nausea; Denies diarrhea or vomiting Genitourinary Genitourinary ED: Denies dysuria, hematuria or urinary frequency Musculoskeletal Musculoskeletal: Reports back pain; Denies myalgias Integumentary Denies rash Neurologic Neurologic: Denies headache(s) or weakness EXAM Physical Exam Const Vital Signs: 09/08/21 12:12 09/08/21 13:12 Temperature 97.2 F L Temperature Source Temporal Pulse Rate 124 H Respiratory Rate 16 Respiratory Effort Normal Non-Labored Respiratory Pattern Normal Blood Pressure 128/92 H Blood Pressure Mean 104 Pulse Ox 100 Oxygen Delivery Method Room Air Positive well nourished and obese General Appearance ED: NAD; Negative for pallor Nutritional Appearance: obese HEENT Reports moist mucous membranes normocephalic and atraumatic Eyes PERRL and EOMs intact bilaterally Resp normal respiratory effort and clear to auscultation bilaterally Cardio regular rate and regular rhythm GI non-distended Palpation: soft Back/Spine Negative for no CVA tenderness Back/Spine Narrative: Tenderness palpation right thoracic paraspinal musculature. No CVA tenderness Neuro Sensorium / Orientation: alert and oriented to person Psych mental status grossly normal and thought process normal Skin General Skin Exam: Negative for jaundice or pallor MDM MDM MDM Narrative Medical decision making narrative: Patient presenting with right-sided abdominal pain/flank pain. She does not have CVA tenderness. She is not extremely tender on exam either. I did check a CBC and BMP and these are unremarkable. Urinalysis is negative. I obtained a CT of the abdomen pelvis without contrast to see if she was having a kidney stone, but the radiologist read this as a 3.5 cm mass in the superior posterior segment the right lobe of the liver. When I asked the patient if she had known this before she said yes she was told of something. She never followed up for it. I reviewed the medical record and saw that she had an ultrasound in 2019 where she had a probable hemangioma at 3.3 cm[address] I spoke with Dr. Jeronimo and he recommended adding an alpha-fetoprotein, ESR, CRP, CA?125, CA 19?9, CEA. This was not sent stat and he will follow-up with outpatient. Patient counseled to return for any new or worsening symptoms, otherwise she will follow up with Dr. Jeronimo. Impression: 1. Liver mass 3.5 cm Lab Data Labs: Laboratory Results - last 24 hr 09/08/21 09/08/21 09/08/21 13:02 13:02 13:02 WBC 9.1 RBC 4.56 Hgb 15.0 Hct 42.5 MCV 93.2 MCH 32.9 H MCHC 35.3 RDW Std Deviation 40.7 RDW Coeff of Fartun 11.8 Plt Count 290 MPV 9.8 Immature Gran % (Auto) 0.200 Neut % (Auto) 80.8 H Lymph % (Auto) 13.5 L Elbert % (Auto) 4.6 Eos % (Auto) 0.7 Baso % (Auto) 0.2 Absolute Neuts (auto) 7.3 Absolute Lymphs (auto) 1.22 Nucleated RBC % 0 Sodium 138 Potassium 3.8 Chloride 107 Carbon Dioxide 27.0 Anion Gap 4 L BUN 15 Creatinine 0.77 Estim Creat Clear Calc 85.54 Est GFR (MDRD) Af Amer 107 Est GFR (MDRD) Non-Af 88 BUN/Creatinine Ratio 19.4 Glucose 87 Calcium 9.4 Urine Color Yellow Urine Clarity Clear Urine pH 7.0 Ur Specific [place] 1.010 Urine Protein Negative Urine Glucose (UA) Normal Urine Ketones Negative Urine Occult Blood Negative Urine Nitrite Negative Urine Bilirubin Negative Urine Urobilinogen Normal Ur Leukocyte Esterase Negative Urine RBC 0 SEEN Urine WBC 0 SEEN Ur Squamous Epith Cells 0 SEEN Urine Bacteria 0 SEEN Urine Mucus 0 SEEN Radiography Diagnostic Testing: Clinical Impression(s) from Imaging Studies Abdomen/Pelvis CT 09/08/21 13:37 IMPRESSION: 1. No renal or ureteral stone. 2. 3.5 cm mass in the superior posterior segment the right lobe of the liver and correlation with liver protocol CT or MRI. Electronically Signed: Julius Robin MD at 14:20 EST , Discharge Plan Triage Chief Complaint: Flank Pain ED Provider: Waldo Thomas Dx/Rx/DC Orders Primary Care Provider: Karina Browne Referrals: Karina Browne MD [Primary Care Provider] - Jeremías Jeronimo DO [STAFF PHYSICIAN] - As soon as possible Disposition Disposition: Home, Self Care
[2021-09-08 13:49] LABS: Absolute Lymphocyte Count 1.22 X10^3/uL (0.83-4.51); Absolute Neutrophil Count 7.3 X10^3/uL (2.0-7.7); Basophil# 0.02 X10^3/uL; Basophil% 0.2 % (0-1); Eosinophil# 0.06 X10^3/uL; Eosinophils% 0.7 % (0-5); Hematocrit 42.5 % (37-47); Lymphocyte # 1.22 X10^3/ul (0.83-4.51); Lymphocyte % 13.5 % (19-41); Mean Corp Hgb Conc 35.3 g/dL (32-36); Mean Corpuscular Hgb 32.9 pg (27.0-32.0); Mean Corpuscular Volume 93.2 fL (81-99); Mean Platelet Vol. 9.8 fl (6.2-12.0); Monocyte# 0.42 X10^3/uL; Monocyte% 4.6 % (0-10); NRBC Flagged by Analyzer 0 % (0-5); Neutrophil # 7.31 X10^3/uL (2.7-7.7); Neutrophil % 80.8 % (47-70); Platelet Count 290 K/mm3 (150-450); RBC Distribution Width CV 11.8 % (11.6-14.6); RBC Distribution Width SD 40.7 fl (35.1-43.9); Red Blood Count 4.56 M/mm3 (4.2-5.4); White Blood Count 9.1 K/mm3 (4.4-11.0)
[2021-09-08 13:50] LABS: Color, Urine Yellow (Yellow); Glucose, Dipstick Normal (Normal); Ketone-Dipstick Negative (Negative); Leukocyte Esterase-Dipstick Negative /ul (Negative); Nitrite-Dipstick Negative (Negative); Occult Blood-Urine Negative /ul (Negative); Protein-Dipstick Negative (Negative); Urine Bilirubin Dipstick Negative (Negative); Urine Clarity Clear (Clear); Urine Urobilinogen Normal (Normal)
[2021-09-08 13:53] LABS: Anion Gap 4 (5-15); BUN 15 mg/dL (7-18); BUN/Creat Ratio 19.4 RATIO (10-20); Calcium,Total 9.4 mg/dL (8.5-10.1); Chloride 107 mmol/L (98-107); Creatinine, Serum 0.77 mg/dL (0.55-1.02); EST Glomerular Filtration Rate 88 mL/min (>60); Est Glom Filt Rate - Afr Amer 107 mL/min (>60); Estimated Creatinine Clearance 85.54 ml/min; Glucose 87 mg/dL (74-106); Potassium 3.8 mmol/L (3.5-5.1); Sodium Level 138 mmol/L (136-145)
[2021-09-08 16:20] LABS: AST(SGOT) 18 U/L (15-37); Alanine Aminotransfer ALT/SGPT 19 U/L (13-56); Albumin, Serum 4.1 g/dL (3.2-5.0); Alkaline Phosphatase 89 U/L (45-117); Bilirubin, Direct 0.15 mg/dL (0.00-0.30); Protein, Total 8.1 g/dL (6.4-8.2)
[2021-09-08 16:28] VITALS: BP 133/79; PULSE 88; RESP 18; O2SAT 100
[2021-09-08 16:48] LABS: Erythrocyte Sedimentation Rate 31 mm/hr (0-30)
[2021-09-10 17:27] LABS: AFP, Tumor Marker 1.7 ng/mL (0.0-8.3); Cancer Antigen 125 2303 5.7 U/mL (0.0-38.1); Carbohydrate Ag 19-9 2261 < 2 U/mL (0-35); Carcinoembryonic Antigen 1.4 ng/mL (0.0-4.7)
== END 2021-09-08 16:29 | disposition home or self-care (01) ==
PROVIDERS: Emergency Provider Student in an Organized Health Care Education/Training Program; PCP Family Medicine; Visit Provider Student in an Organized Health Care Education/Training Program
DX: R16.0 Hepatomegaly, not elsewhere classified (principal)
CPT/HCPCS: 74176; 80048; 80076; 81001; 82105; 82378; 85025; 85652; 86140; 86301; 86304; 99284; J7030; A4216

== ENCOUNTER 2021-10-30 11:21 | Outpatient (CLI) | payer BC, SELFPAY ==
[2021-10-30 11:58] LABS: Erythrocyte Sedimentation Rate 15 mm/hr (0-30)
[2021-10-30 12:00] LABS: Absolute Lymphocyte Count 1.41 X10^3/uL (0.83-4.51); Absolute Neutrophil Count 5.4 X10^3/uL (2.0-7.7); Basophil# 0.03 X10^3/uL; Basophil% 0.4 % (0-1); Eosinophil# 0.07 X10^3/uL; Hematocrit 41.2 % (37-47); Lymphocyte # 1.41 X10^3/ul (0.83-4.51); Lymphocyte % 19.2 % (19-41); Mean Corpuscular Hgb 31.7 pg (27.0-32.0); Mean Corpuscular Volume 93.4 fL (81-99); Mean Platelet Vol. 9.6 fl (6.2-12.0); Monocyte# 0.39 X10^3/uL; Monocyte% 5.3 % (0-10); NRBC Flagged by Analyzer 0 % (0-5); Neutrophil # 5.44 X10^3/uL (2.7-7.7); Platelet Count 263 K/mm3 (150-450); RBC Distribution Width CV 12.2 % (11.6-14.6); RBC Distribution Width SD 42.4 fl (35.1-43.9); Red Blood Count 4.41 M/mm3 (4.2-5.4); White Blood Count 7.4 K/mm3 (4.4-11.0)
[2021-10-30 12:05] LABS: Prothrombin Time (Protime)PT. 13.1 SECONDS (11.7-14.9)
[2021-10-30 12:23] LABS: Ammonia < 10.0 umol/L (11-32)
[2021-10-30 12:24] LABS: Hemoglobin A1c 4.8 % (3.8-5.6)
[2021-10-30 12:50] LABS: ALB/GLOB Ratio 1.1 RATIO (0.9-2.4); AST(SGOT) 15 U/L (15-37); Alanine Aminotransfer ALT/SGPT 22 U/L (13-56); Albumin, Serum 4.2 g/dL (3.2-5.0); Alkaline Phosphatase 88 U/L (45-117); Anion Gap 5 (5-15); BUN 14 mg/dL (7-18); BUN/Creat Ratio 18.1 RATIO (10-20); Calcium,Total 9.1 mg/dL (8.5-10.1); Chloride 103 mmol/L (98-107); Creatinine, Serum 0.77 mg/dL (0.55-1.02); EST Glomerular Filtration Rate 88 mL/min (>60); Est Glom Filt Rate - Afr Amer 107 mL/min (>60); Ferritin 78 ng/mL (8-252); Globulin 3.9 g/dL (2.2-4.2); Glucose 92 mg/dL (74-106); LDH 163 U/L (84-246); Potassium 3.7 mmol/L (3.5-5.1); Protein, Total 8.1 g/dL (6.4-8.2); Sodium Level 137 mmol/L (136-145)
[2021-10-30 13:05] LABS: HIV - WCH Non-Reactive (Nonreactive)
[2021-10-31 15:08] LABS: Anti-Centromere B Ab <0.2 AI (0.0-0.9); Anti-Chromatin <0.2 AI (0.0-0.9); Anti-Jo <0.2 AI (0.0-0.9); Anti-Scleroderma-70 AB <0.2 AI (0.0-0.9); RNP Ab 0.7 AI (0.0-0.9); SJOGREN'S Anti-SS-A test < 0.2 AI (0.0-0.9); SJOGREN'S Anti-SS-B test < 0.2 AI (0.0-0.9); Smith Ab <0.2 AI (0.0-0.9)
[2021-10-31 20:08] LABS: Anti-Mitochondrial AB <20.0 Units (0.0-20.0); Anti-dsDNA Ab 1 IU/mL (0-9)
[2021-11-01 09:08] LABS: Angiotensin Convert Enzyme 35 U/L (14-82); Ceruloplasmin 29.8 mg/dL (19.0-39.0); Cytoplasmic Ab (C-ANCA) <1:20 titer (Neg:<1:20); HEPATITIS B SURFACE AG Negative (Negative); Hepatitis A IgM Antibody Negative (Negative); Hepatitis B Core AB IgM Negative (Negative)
[2021-11-01 13:33] LABS: AFP, Tumor Marker 2.5 ng/mL (0.0-6.4); Anti-Smooth Muscle ABS 15 Units (0-19); Copper, Serum or Plasma 137 ug/dL (80-158); Haptoglobin 109 mg/dL (33-278); Hep C Antibodies 0.1 s/co ratio (0.0-0.9); Perinuclear Ab (P-ANCA) <1:20 titer (Neg:<1:20)
== END 2021-10-30 23:59 | disposition home or self-care (01) ==
LOC: LAB 11:27
PROVIDERS: PCP Family Medicine; Referring Provider Internal Medicine Gastroenterology; Visit Provider Internal Medicine Gastroenterology
DX: R93.2 Abnormal findings on diagnostic imaging of liver and biliary tract (principal)
CPT/HCPCS: 36415; 80053; 80074; 82105; 82140; 82164; 82390; 82525; 82728; 83010; 83036; 83516; 83615; 85025; 85610; 85652; 86140; 86225; 86235; 86256; 86703

== ENCOUNTER → 2021-11-05 | Outpatient (CLI) | payer BC, SELFPAY ==
--- NOTE | 2021-11-05 10:47 | US_ITS ---
STUDY: ABDOMINAL ULTRASOUND - ELASTOGRAPHY REASON FOR VISIT: Female, 40 years old. Fatty infiltration of the liver. TECHNIQUE: Liver stiffness measurements were obtained on a [employer] RS 85 ultrasound machine using a CA 1-7 probe following the SRU guidelines. 3 measurements were obtained using a 2-D-SWE method. The IQR/M was 17% suggesting a quality data set. TECHNICAL QUALITY: Adequate. COMPARISON: Comparison is made with prior examination done earlier today. FINDINGS: Liver: Fatty infiltration of the liver. Median liver stiffness measured 6 kPa. US/Elastography Parenchyma/Organ IMPRESSION: Liver stiffness measures 6 kPa compatible with F2-F3 (Mild to moderate liver fibrosis) Metavir score. Electronically Signed: Chidi Dunham MD at 12:56 EDT ,
--- NOTE | 2021-11-05 10:47 | US_ITS ---
STUDY: ABDOMINAL ULTRASOUND - RIGHT UPPER QUADRANT REASON FOR VISIT: Female, 40 years old . Fatty infiltration of the liver. TECHNIQUE: Ultrasound evaluation of the right upper quadrant was performed with real-time and static morel-scale imaging. TECHNICAL QUALITY: Adequate. COMPARISON: Comparison is made with prior examination dated 08/02/2018. FINDINGS: Liver: The liver is enlarged and measures 20.1 cm. There is normal echogenicity of the liver. The bile ducts are within normal limits. There is hepatic color flow. The direction of portal flow is hepatopetal. There is a 3.4 cm x 3.2 cm x 3.2 cm echogenic nodule in the dome of the right lobe of the liver suggestive of an hemangioma. Gallbladder: Normal distended gallbladder. The gallbladder wall measures 2 mm. There is a negative sonographic Galvez''s sign. There is no pericholecystic fluid. There are no gallstones. Common Bile Duct (C.B.D.): The common bile duct measures 2 mm. Pancreas: Normal size of the head, body and tail of the pancreas. There is normal echogenicity of the pancreas. There is no demonstrated pancreatic mass or cyst. Right Kidney: Normal size of the right kidney. The right kidney measures 12.5 cm x 5.3 cm x 4.2 cm. Normal renal cortex. The right cortex measures 1.2 cm. There is no demonstrated renal mass or cyst. There is no right hydronephrosis. US/Abdomen Limited IMPRESSION: Hepatomegaly. Findings suggestive of a 3.4 cm x 3.27 x 3.2 cm hemangioma in the dome of the right lobe of the liver. Electronically Signed: Chidi Dunham MD at 13:01 EDT ,
== END | disposition home or self-care (01) ==
LOC: US 10:46
PROVIDERS: PCP Family Medicine; Referring Provider Internal Medicine Gastroenterology; Visit Provider Internal Medicine Gastroenterology
DX: R93.2 Abnormal findings on diagnostic imaging of liver and biliary tract (principal)
CPT/HCPCS: 76705; 76981

== ENCOUNTER → 2022-01-13 | Outpatient (CLI) | payer BC, SELFPAY ==
--- NOTE | 2022-01-13 08:16 | BI_ITS ---
MAMMOGRAPHY - BILATERAL SCREENING REASON FOR EXAM: Female, 41 years old. Routine annual screening examination. PERTINENT HISTORY: Grandmother with breast cancer. Aunt with breast cancer. TECHNIQUE: Digital bilateral breast eric (3D mammographic acquisition) in the CC and MLO projections. 2-D mediolateral oblique (MLO) and craniocaudad (CC) views of both breasts were obtained. CAD: Full Field Digital Mammography with Computer Added Detection was performed. COMPARISON: Comparison is made with prior study dated 01/11/2021. FINDINGS: Breast Composition: The breasts are extremely dense, which lowers the sensitivity of mammography. There are no dominant masses or suspicious calcifications. No other significant abnormalities are identified. There has been no significant change since the prior study. BI/SCRN MAMM (CAD)W/ERIC BILAT IMPRESSION: Stable bilateral screening mammogram. Yearly follow-up mammogram recommended. (A) ASSESSMENT CATEGORY: BIRADS Category 1: Negative. A letter regarding these results will be sent to the patient by the facility within 30 days. Approximately 10% of breast cancers are not detected by mammography. A normal mammogram should not delay biopsy of a clinically suspicious abnormality. [id number] Electronically Signed: Chidi Dunham MD at 9:40 EDT ,
== END | disposition home or self-care (01) ==
PROVIDERS: PCP Family Medicine; Visit Provider Obstetrics & Gynecology
DX: Z12.31 Encounter for screening mammogram for malignant neoplasm of breast (principal); Z80.3 Family history of malignant neoplasm of breast
CPT/HCPCS: 77063; 77067

== ENCOUNTER → 2022-07-01 | Outpatient (CLI) | payer BC, SELFPAY ==
[2022-07-01 11:13] LABS: Erythrocyte Sedimentation Rate 20 mm/hr (0-30)
[2022-07-01 14:37] LABS: ALB/GLOB Ratio 1.1 RATIO (0.9-2.4); AST(SGOT) 14 U/L (15-37); Alanine Aminotransfer ALT/SGPT 17 U/L (13-56); Alkaline Phosphatase 94 U/L (45-117); Anion Gap 8 (5-15); BUN 8 mg/dL (7-18); BUN/Creat Ratio 10.2 RATIO (10-20); Calcium,Total 9.4 mg/dL (8.5-10.1); Chloride 104 mmol/L (98-107); Creatinine, Serum 0.78 mg/dL (0.55-1.02); EST Glomerular Filtration Rate 87 mL/min (>60); Est Glom Filt Rate - Afr Amer 105 mL/min (>60); Globulin 3.8 g/dL (2.2-4.2); Glucose 90 mg/dL (74-106); Potassium 3.6 mmol/L (3.5-5.1); Protein, Total 7.8 g/dL (6.4-8.2); Sodium Level 139 mmol/L (136-145)
== END | disposition home or self-care (01) ==
LOC: LAB 10:46
PROVIDERS: PCP Family Medicine; Referring Provider Internal Medicine Gastroenterology; Visit Provider Internal Medicine Gastroenterology
DX: K76.0 Fatty (change of) liver, not elsewhere classified (principal)
CPT/HCPCS: 36415; 80053; 85652; 86140

== ENCOUNTER → 2022-07-16 | Outpatient (CLI) | payer BC, SELFPAY ==
--- NOTE | 2022-07-16 07:37 | US_ITS ---
STUDY: ABDOMINAL ULTRASOUND - RIGHT UPPER QUADRANT REASON FOR VISIT: Female, 41 years old Fatty Liver TECHNIQUE: Ultrasound evaluation of the right upper quadrant was performed with real-time and static morel-scale imaging. TECHNICAL QUALITY: Adequate. COMPARISON: Comparison is made with prior study dated 11/05/2021. FINDINGS: Liver: The liver is enlarged and measures 20.2 cm. There is normal echogenicity of the liver. The bile ducts are within normal limits. There is hepatic color flow. The direction of portal flow is hepatopetal. Stable 3.4 cm x 3.4 cm x 3.2 cm echogenic nodule in the dome of the right lobe of the liver suggestive of an hemangioma. Gallbladder: Normal distended gallbladder. The gallbladder wall measures 1.0 mm. There is a negative sonographic Galvez''s sign. There is no pericholecystic fluid. There are no gallstones. Common Bile Duct (C.B.D.): The common bile duct measures 3.3 mm. Pancreas: Normal size of the head, body and tail of the pancreas. There is normal echogenicity of the pancreas. There is no demonstrated pancreatic mass or cyst. Right Kidney: Normal size of the right kidney. The right kidney measures 12.1 cm x 5.8 cm x 4.3 cm. Normal renal cortex. The right cortex measures 1.3 cm. There is no demonstrated renal mass or cyst. There is no right hydronephrosis. US/Abdomen Limited IMPRESSION: Hepatomegaly. Findings suggestive of a hemangioma in the right lobe of the liver. Electronically Signed: Chidi Dunham MD at 9:41 EST ,
--- NOTE | 2022-07-16 07:37 | US_ITS ---
STUDY: ABDOMINAL ULTRASOUND - ELASTOGRAPHY REASON FOR VISIT: Female, 41 years old. Hepatomegaly and fatty infiltration of the liver. TECHNIQUE: Liver stiffness measurements were obtained on a [employer] RS 85 ultrasound machine using a CA 1-7 probe following the SRU guidelines. 3 measurements were obtained using a 2-D-SWE method. The IQR/M was 25% suggesting a quality data set. TECHNICAL QUALITY: Adequate. COMPARISON: Comparison is made with prior study dated 11/05/2021. FINDINGS: Liver: Hepatomegaly and fatty infiltration of the liver. Median liver stiffness measured 5 kPa. US/Elastography Parenchyma/Organ IMPRESSION: Liver stiffness measures 5 kPa compatible with F0-F1 (Normal to mild liver fibrosis) Metavir score. Electronically Signed: Chidi Dunham MD at 9:46 EST ,
== END | disposition home or self-care (01) ==
PROVIDERS: PCP Family Medicine; Visit Provider Internal Medicine Gastroenterology
DX: K76.0 Fatty (change of) liver, not elsewhere classified (principal)
CPT/HCPCS: 76705; 76981

== ENCOUNTER → 2022-12-11 | Outpatient (CLI) | payer BC, SELFPAY ==
[2022-12-11 12:05] LABS: Erythrocyte Sedimentation Rate 8 mm/hr (0-30)
[2022-12-11 12:07] LABS: Absolute Lymphocyte Count 1.55 X10^3/uL (0.83-4.51); Absolute Neutrophil Count 4.9 X10^3/uL (2.0-7.7); Basophil# 0.03 X10^3/uL; Basophil% 0.4 % (0-1); Eosinophil# 0.17 X10^3/uL; Eosinophils% 2.4 % (0-5); Hemoglobin 14.1 g/dL (12.0-15.0); Lymphocyte # 1.55 X10^3/ul (0.83-4.51); Lymphocyte % 21.6 % (19-41); Mean Corp Hgb Conc 32.8 g/dL (32-36); Mean Corpuscular Hgb 31.3 pg (27.0-32.0); Mean Corpuscular Volume 95.6 fL (81-99); Mean Platelet Vol. 10.3 fl (6.2-12.0); Monocyte# 0.45 X10^3/uL; Monocyte% 6.3 % (0-10); NRBC Flagged by Analyzer 0 % (0-5); Neutrophil # 4.94 X10^3/uL (2.7-7.7); Platelet Count 312 K/mm3 (150-450); RBC Distribution Width CV 12.5 % (11.6-14.6); RBC Distribution Width SD 43.6 fl (35.1-43.9); White Blood Count 7.2 K/mm3 (4.4-11.0)
[2022-12-11 12:36] LABS: ALB/GLOB Ratio 1.1 RATIO (0.9-2.4); AST(SGOT) 19 U/L (15-37); Alanine Aminotransfer ALT/SGPT 19 U/L (13-56); Alkaline Phosphatase 82 U/L (45-117); Anion Gap 4 (5-15); BUN 13 mg/dL (7-18); BUN/Creat Ratio 16.3 RATIO (10-20); Calcium,Total 9.2 mg/dL (8.5-10.1); Chloride 106 mmol/L (98-107); EST Glomerular Filtration Rate 85 mL/min (>60); Est Glom Filt Rate - Afr Amer 102 mL/min (>60); Globulin 3.7 g/dL (2.2-4.2); Glucose 92 mg/dL (74-106); Protein, Total 7.7 g/dL (6.4-8.2); Sodium Level 141 mmol/L (136-145)
== END | disposition home or self-care (01) ==
LOC: LAB 10:16
PROVIDERS: PCP Family Medicine; Referring Provider Nurse Practitioner Adult Health; Visit Provider Nurse Practitioner Adult Health
DX: K76.0 Fatty (change of) liver, not elsewhere classified (principal)
CPT/HCPCS: 36415; 80053; 85025; 85652; 86140

== ENCOUNTER → 2023-01-15 | Outpatient (CLI) | payer BC, SELFPAY ==
--- NOTE | 2023-01-15 14:39 | BI_ITS ---
MAMMOGRAPHY - BILATERAL SCREENING REASON FOR EXAM: Female, 42 years old. Routine annual screening examination. PERTINENT HISTORY: Grandmother with breast cancer. Aunt with breast cancer. TECHNIQUE: Digital bilateral breast eric (3D mammographic acquisition) in the CC and MLO projections. 2-D mediolateral oblique (MLO) and craniocaudad (CC) views of both breasts were obtained. CAD: Full Field Digital Mammography with Computer Added Detection was performed. COMPARISON: Comparison is made with prior study dated January 13, 2022 and January 11, 2021. FINDINGS: Breast Composition: The breasts are extremely dense, which lowers the sensitivity of mammography. There are no dominant masses or suspicious calcifications. No other significant abnormalities are identified. There has been no significant change since the prior study. BI/SCRN MAMM (CAD)W/ERIC BILAT IMPRESSION: Stable bilateral screening mammogram. Yearly follow-up mammogram recommended. (A) ASSESSMENT CATEGORY: BIRADS Category 1: Negative. A letter regarding these results will be sent to the patient by the facility within 30 days. Approximately 10% of breast cancers are not detected by mammography. A normal mammogram should not delay biopsy of a clinically suspicious abnormality. [id number] Electronically Signed: Chidi Dunham MD at 15:41 EDT ,
== END | disposition home or self-care (01) ==
LOC: OPBI 14:38
PROVIDERS: PCP Family Medicine; Referring Provider Obstetrics & Gynecology; Visit Provider Obstetrics & Gynecology
DX: Z12.31 Encounter for screening mammogram for malignant neoplasm of breast (principal); Z80.3 Family history of malignant neoplasm of breast
CPT/HCPCS: 77063; 77067

== ENCOUNTER → 2023-08-28 | Outpatient (CLI) | payer BC, SELFPAY ==
--- OUTSIDE RECORDS SUMMARY | 2023-08-28 15:54 | XMS RPT_ITS | CCD ---
Author Name Unknown Address [id number] [place] [address] Organization [facility] Care Team Providers Care Director Of Software Engineering Name Role Phone ETHEL Crum RN, Ping Rosario RN RN, Ping Rosario RN RN, Radha Self MD Unavailable [phone] RAGHU CASTANEDA Primary Care Unavailable Medications Completed/Discontinued Medications Medication Drug Class(es) Dates Sig (Normalized) Sig (Original) VIT-FE FUMARATE-FA (9 sources) Start: 04-20-2017 VITAMIN 27-0.8 MG TABS VIT-FE FUMARATE-FA [id number] Marisela Garrett Problems Active Problems Problem Classification Problem Date Documented Da te Episodic/Chronic Other female genital disorders (5 sources) Abnormal uterine and vaginal bleeding, unspecified; Translations: [Abnormal uterine and vaginal bleeding, unspecified] Onset: 05-06-2017 06-04-2017 Chronic Past or Other Problems Problem Classification Problem Date Documented Da te Episodic/Chronic Hemorrhage during ; abruptio placenta; placenta previa (15 sources) Threatened miscarriage; Translations: [Threatened ] Onset: 04-20-2017 Resolved: 05-06-2017 05-06-2017 Episodic Spontaneous (6 sources) Complete miscarriage; Translations: [Complete or unspecified spontaneous without complication] Onset: 05-06-2017 05-06-2017 Episodic Results Test Name Value Interpretation Reference Range Facil ity Vital Signs Date Time Vital Sign Value Performing Clinician Faci lity 06-04-2017 15:10-0500 BMI (Body Mass Index) 35.94 kg/m2 Radha Bender MD [facility] 06-04-2017 15:10-0500 Height 165.1 cm Radha Bender MD [facility] 06-04-2017 15:10-0500 Weight 97.98 kg Radha Bender MD [facility] 05-06-2017 14:29-0400 BMI (Body Mass Index) 35.84 kg/m2 Radha Bender MD [facility] 05-06-2017 14:29-0400 Body Temperature 99 [degF] Radha Bender MD [facility] 05-06-2017 14:29-0400 BP Diastolic 80 mm[Hg] Radha Bender MD [facility] 05-06-2017 14:29-0400 BP Systolic 122 mm[Hg] Radha Bender MD [facility] 05-06-2017 14:29-0400 Height 165.1 cm Rahda Bender MD [facility] 05-06-2017 14:29-0400 Pulse (Heart Rate) 86 /min Radha Bender MD [facility] 05-06-2017 14:29-0400 Respiratory Rate 16 /min Radha Bender MD [facility] 05-06-2017 14:29-0400 Weight 97.71 kg Radha Bender MD [facility] 05-06-2017 14:29-0400 Weight 97.7 kg Radha Bender MD [facility] 04-21-2017 19:59-0400 Body surface area Derived from formula 87.76 mL/min Radha Bender MD [facility] 04-20-2017 08:20-0400 BMI (Body Mass Index) 35.11 kg/m2 Radha Bender MD [facility] 04-20-2017 08:20-0400 Body Temperature 98.6 [degF] Radha Bender MD [facility] 04-20-2017 08:20-0400 BP Diastolic 79 mm[Hg] Radha Bender MD [facility] 04-20-2017 08:20-0400 BP Systolic 123 mm[Hg] Radha Bender MD [facility] 04-20-2017 08:20-0400 Height 165.1 cm Radha Bender MD [facility] 04-20-2017 08:20-0400 Pulse (Heart Rate) 100 /min Radha Bender MD [facility] 04-20-2017 08:20-0400 Respiratory Rate 16 /min Radha Bender MD [facility] 04-20-2017 08:20-0400 Weight 95.71 kg Radha Bender MD [facility] Encounters Encounter Date Encounter Type Care Provider Facility Start: 04-30-2023 End: 05-01-2023 ambulatory RAGHU TIFFANIE LEONEL Facility:[facility] Procedures Date Procedure Procedure Detail Performing Clinician Start: 06-04-2017 End: 06-05-2017 *CBC with Differential Radha carrion MD Work Phone: Start: 06-04-2017 End: 06-05-2017 Choriogonadotropin.beta subunit [Units/volume] in Serum or Plasma Radha Bender MD Work Phone: Start: 06-04-2017 End: 06-05-2017 Thyrotropin [Units/volume] in Serum or Plasma Radha Bender MD Work Phone: Start: 04-20-2017 End: 04-20-2017 Us preg uterus 14 wk transabdl each gestation Radha Bender MD Work Phone: Plan of Treatment Date Care Activity Detail Author Start: 06-04-2017 End: 06-04-2017 Appointment Appointment [facility] Start: 06-04-2017 End: 06-05-2017 *CBC with Differential *CBC with Differential [facility] Start: 06-04-2017 End: 06-05-2017 HCG.beta subunit Qn *HCGT - HCG Titer Quant., Serum [facility] Start: 06-04-2017 End: 06-05-2017 Thyroid stimulating hormone (TSH) *TSH [facility] Start: 05-06-2017 End: 05-06-2017 Appointment Appointment [facility] Start: 04-23-2017 End: 04-23-2017 Appointment Appointment [facility] Payers Date Payer Category Payer Unknown [id number] Summary Purpose Family History No Family History Records Found Advance Directives No Advanced Directives Records Found Additional Source Comments INFORMATION SOURCE (unrecogn ized section and content) FOR RECORDS PERTAINING TO PATIENTS WHO ARE OR HAVE BEEN ENROLLED IN A CHEMICAL DEPENDENCY/SUBSTANCEABUSE PROGRAM, SOME INFORMATION MAY BE OMITTED. This clinical summary was aggregated from multiple sources. Caution should be exercised in using it in the provision of clinical care. This summary normalizes information from multiple sources, and as a consequence, information in this document may materially change the coding, format and clinical context of patient data. In addition, data may be omitted in some cases. CLINICAL DECISIONS SHOULD BE BASED ON THE PRIMARY CLINICAL RECORDS. [facility] [employer] [facility]. provides no warranty or guarantee of the accuracy or completeness of information in this document.
[2023-08-28 15:56] LABS: Absolute Lymphocyte Count 2.03 X10^3/uL (0.83-4.51); Absolute Neutrophil Count 7.3 X10^3/uL (2.0-7.7); Basophil# 0.04 X10^3/uL; Basophil% 0.4 % (0-1); Eosinophil# 0.24 X10^3/uL; Eosinophils% 2.4 % (0-5); Hematocrit 41.7 % (37-47); Hemoglobin 13.7 g/dL (12.0-15.0); Lymphocyte # 2.03 X10^3/ul (0.83-4.51); Lymphocyte % 19.9 % (19-41); Mean Corp Hgb Conc 32.9 g/dL (32-36); Mean Corpuscular Hgb 30.9 pg (27.0-32.0); Mean Corpuscular Volume 94.1 fL (81-99); Mean Platelet Vol. 10.5 fl (6.2-12.0); Monocyte# 0.55 X10^3/uL; Monocyte% 5.4 % (0-10); NRBC Flagged by Analyzer 0 % (0-5); Neutrophil % 71.6 % (47-70); Platelet Count 343 K/mm3 (150-450); RBC Distribution Width CV 12.6 % (11.6-14.6); RBC Distribution Width SD 43.8 fl (35.1-43.9); Red Blood Count 4.43 M/mm3 (4.2-5.4); White Blood Count 10.2 K/mm3 (4.4-11.0)
[2023-08-28 16:03] LABS: International Normalized Ratio 1.1; Prothrombin Time (Protime)PT. 14.1 SECONDS (11.7-14.9)
[2023-08-28 16:04] LABS: Erythrocyte Sedimentation Rate 17 mm/hr (0-30)
[2023-08-28 16:30] LABS: AST(SGOT) 22 U/L (15-37); Alanine Aminotransfer ALT/SGPT 20 U/L (13-56); Albumin, Serum 3.9 g/dL (3.2-5.0); Alkaline Phosphatase 89 U/L (45-117); Anion Gap 6 (5-15); BUN 9 mg/dL (7-18); BUN/Creat Ratio 11.2 RATIO (10-20); Chloride 105 mmol/L (98-107); Cholesterol 117 mg/dL (200); EST Glomerular Filtration Rate 84 mL/min (>60); Est Glom Filt Rate - Afr Amer 102 mL/min (>60); Globulin 3.8 g/dL (2.2-4.2); Glucose 86 mg/dL (74-106); High Density Lipoprotein 51 mg/dL; Potassium 3.2 mmol/L (3.5-5.1); Protein, Total 7.7 g/dL (6.4-8.2); Sodium Level 140 mmol/L (136-145); Triglycerides 143 mg/dL; Very Low Density Lipoprotein 29 mg/dL (5-40)
[2023-08-30 08:08] LABS: AFP, Tumor Marker 2.5 ng/mL (0.0-6.4)
== END | disposition home or self-care (01) ==
PROVIDERS: PCP Family Medicine; Referring Provider Internal Medicine; Visit Provider Internal Medicine
DX: R79.82 Elevated C-reactive protein (CRP) (principal); K76.0 Fatty (change of) liver, not elsewhere classified
CPT/HCPCS: 36415; 80053; 80061; 82105; 83036; 85025; 85610; 85652; 86140

== ENCOUNTER → 2023-09-11 | Outpatient (CLI) | payer BC, SELFPAY ==
--- NOTE | 2023-09-11 06:58 | CT_ITS ---
EXAM: CT ABDOMEN AND PELVIS WITHOUT AND WITH INTRAVENOUS CONTRAST CLINICAL INDICATION: Liver mass, NAFLD -- Triple phase, Liver mass about 3.5 cm, echogenic TECHNIQUE: Helically acquired images were obtained of the abdomen and pelvis without and with intravenous contrast. This CT exam was performed using one or more of the following dose reduction techniques: automated exposure control, adjustment of the mA and/or kV according to patient size, and/or use of iterative reconstruction technique. CONTRAST: IV 100mL Isovue-370 RADIATION DOSE: CTDIvol = 19.77 mGy, DLP = 2834.53 mGy-cm COMPARISON: CT abdomen and pelvis without contrast 09/08/2021. FINDINGS: LOWER THORAX: Unremarkable. Lung bases are clear. No cardiomegaly. No significant pericardial effusion. ABDOMEN: LIVER: 3.5 x 2.9 x 3.5 cm hypodense mass with peripheral puddling of contrast in the posterior aspect of segment 7 of the liver parenchyma is consistent with hemangioma. GALLBLADDER AND BILE DUCTS: Unremarkable. No calcified gallstones. No gallbladder distention or wall edema. No intra- or extrahepatic biliary ductal dilation. PANCREAS: Unremarkable. No focal cystic or solid mass. SPLEEN: Unremarkable. Normal size without focal cystic or solid mass. ADRENALS: Unremarkable. No nodules. KIDNEYS AND URETERS: Unremarkable. Normal renal size and position. No hydronephrosis. STOMACH AND BOWEL: Unremarkable. No stomach or bowel distention. No focal inflammatory change. PELVIS: APPENDIX: Normal. BLADDER: Unremarkable. REPRODUCTIVE: Unremarkable as visualized. No mass. ABDOMEN and PELVIS: INTRAPERITONEAL SPACE: Unremarkable. No ascites or other fluid collection. No free air. BONES/JOINTS: Unremarkable. No suspicious lytic or blastic abnormality. SOFT TISSUES: Unremarkable. No discrete abdominal or pelvic wall hernia. VASCULATURE: Unremarkable. Abdominal aorta is non-dilated. LYMPH NODES: Unremarkable. No enlarged lymph nodes. CT/CT Abd/Pelvis W/WO Contrast IMPRESSION: 3.5 x 2.9 x 3.5 cm hypodense mass with peripheral puddling of contrast in the posterior aspect of segment 7 of the liver parenchyma is consistent with benign hepatic hemangioma. Electronically Signed: Ayaan Cuba MD at 13:03 EST ,
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
== END | disposition home or self-care (01) ==
LOC: CT 06:58
PROVIDERS: PCP Family Medicine; Referring Provider Internal Medicine; Visit Provider Internal Medicine
DX: D13.4 Benign neoplasm of liver (principal); K76.0 Fatty (change of) liver, not elsewhere classified
CPT/HCPCS: 74178; Q9967

== ENCOUNTER → 2023-12-09 | Outpatient (CLI) | payer BC, SELFPAY ==
[2023-12-09 07:23] LABS: Absolute Lymphocyte Count 1.83 X10^3/uL (0.83-4.51); Absolute Neutrophil Count 5.5 X10^3/uL (2.0-7.7); Basophil# 0.04 X10^3/uL; Basophil% 0.5 % (0-1); Eosinophil# 0.22 X10^3/uL; Eosinophils% 2.7 % (0-5); Hematocrit 42.4 % (37-47); Hemoglobin 13.7 g/dL (12.0-15.0); Lymphocyte # 1.83 X10^3/ul (0.83-4.51); Lymphocyte % 22.8 % (19-41); Mean Corp Hgb Conc 32.3 g/dL (32-36); Mean Corpuscular Volume 95.9 fL (81-99); Mean Platelet Vol. 10.3 fl (6.2-12.0); Monocyte# 0.47 X10^3/uL; Monocyte% 5.8 % (0-10); NRBC Flagged by Analyzer 0 % (0-5); Neutrophil # 5.46 X10^3/uL (2.7-7.7); Platelet Count 293 K/mm3 (150-450); RBC Distribution Width CV 12.8 % (11.6-14.6); RBC Distribution Width SD 45.6 fl (35.1-43.9); Red Blood Count 4.42 M/mm3 (4.2-5.4)
[2023-12-09 08:03] LABS: AST(SGOT) 17 U/L (15-37); Alanine Aminotransfer ALT/SGPT 18 U/L (13-56); Albumin, Serum 3.7 g/dL (3.2-5.0); Alkaline Phosphatase 92 U/L (45-117); Anion Gap 5 (5-15); BUN 10 mg/dL (7-18); BUN/Creat Ratio 13.6 RATIO (10-20); Chloride 106 mmol/L (98-107); Creatinine, Serum 0.74 mg/dL (0.55-1.02); EST Glomerular Filtration Rate 92 mL/min (>60); Est Glom Filt Rate - Afr Amer 112 mL/min (>60); Globulin 3.7 g/dL (2.2-4.2); Glucose 87 mg/dL (74-106); Potassium 3.4 mmol/L (3.5-5.1); Protein, Total 7.4 g/dL (6.4-8.2); Sodium Level 138 mmol/L (136-145)
== END | disposition home or self-care (01) ==
LOC: LAB 06:24
PROVIDERS: PCP Family Medicine; Referring Provider Internal Medicine; Visit Provider Internal Medicine
DX: K76.0 Fatty (change of) liver, not elsewhere classified (principal); D13.4 Benign neoplasm of liver
CPT/HCPCS: 36415; 80053; 85025; 86140

== ENCOUNTER → 2024-01-18 | Outpatient (CLI) | payer BC, SELFPAY ==
--- NOTE | 2024-01-18 12:42 | BI_ITS ---
MAMMOGRAPHY - BILATERAL SCREENING 3-D TOMOSYNTHESIS REASON FOR EXAM: Female, 43 years old. screening PERTINENT HISTORY: No significant family history. TECHNIQUE: 2-D mammograms and 3-D Tomosynthesis of the breast (s) were performed. CAD was performed. COMPARISON: 01/15/2023 FINDINGS: The breast composition is Extermely dense tissue. Scattered benign calcifications are seen. 1 cm oval circumscribed equal density mass in the retroareolar right breast at mid depth and focal compression views recommended for further evaluation. No dominant mass left breast. No suspicious calcifications.. No architectural distortion is identified. There is no skin thickening or retraction. BI/SCRN MAMM (CAD)W/ERIC BILAT IMPRESSION: Further imaging evaluation is recommended. ASSESSMENT CATEGORY: BIRADS Category 0: Incomplete. Need additional imaging evaluation as above. A letter regarding these results will be sent to the patient by the facility within 30 days. FOLLOW UP RECOMMENDATION: Additional imaging recommended as above. (E) Approximately 10% of breast cancers are not detected by mammography. A normal mammogram should not delay biopsy of a clinically suspicious abnormality. Electronically Signed: Julius Robin MD at 16:35 EDT ,
== END | disposition home or self-care (01) ==
LOC: OPBI 12:42
PROVIDERS: PCP Family Medicine; Referring Provider Obstetrics & Gynecology; Visit Provider Obstetrics & Gynecology
DX: Z12.31 Encounter for screening mammogram for malignant neoplasm of breast (principal)
CPT/HCPCS: 77063; 77067

== ENCOUNTER → 2024-01-20 | Outpatient (CLI) | payer BC, SELFPAY ==
--- NOTE | 2024-01-20 14:28 | US_ITS ---
STUDY: ULTRASOUND BREAST - RIGHT REASON FOR EXAM: Female, 43 years old. Abnormal screening mammogram. TECHNIQUE: Axial and longitudinal images of the RIGHT breast were performed with a high resolution ultrasound transducer. # OF IMAGES: 22 COMPARISON: Diagnostic mammogram earlier today, screening mammogram 01/18/2024 FINDINGS: RIGHT Breast: Heterogeneous background echotexture. Multiple longitudinal and transverse ultrasound images of the retroareolar right breast confirm a 1.2 cm irregular parallel microlobulated hypoechoic mass with no posterior features corresponding to the mass seen on mammography are not consistent with a simple cyst. Therefore, ultrasound-guided vacuum-assisted core biopsy is recommended.: US/Breast Limited Unilateral IMPRESSION: Ultrasound confirms a 1.2 cm microlobulated hypoechoic mass and ultrasound-guided vacuum-assisted core biopsy is recommended. ASSESSMENT CATEGORY: BIRADS Category 4: Suspicious. Biopsy Should Be Considered. A letter regarding these results will be sent to the patient by the facility within 30 days. Electronically Signed: Julius Robin MD at 16:31 EDT ,
--- NOTE | 2024-01-20 14:28 | BI_ITS ---
MAMMOGRAPHY - UNILATERAL DIAGNOSTIC: RIGHT BREAST REASON FOR EXAM: Female, 43 years old. RT BREAST ABN MAMM PERTINENT HISTORY: Non-contributory. TECHNIQUE: Digital examination. Mediolateral oblique (MLO) and craniocaudad (CC) views of the breast were obtained. CAD: CAD was not performed on this study. COMPARISON: 01/18/2024 FINDINGS: Breast Composition: There are scattered areas of fibroglandular density. Focal compression views confirm a 1 cm oval circumscribed equal density mass in the retroareolar right breast at mid depth and ultrasound is recommended for further evaluation. No other significant abnormalities are identified. BI/DIAG MAMM W/CAD, UNILAT IMPRESSION: Further ultrasonographic evaluation recommended, as described above. ASSESSMENT CATEGORY: BIRADS Category 0: Incomplete. Need additional imaging evaluation. A letter regarding these results will be sent to the patient by the facility within 30 days. FOLLOW-UP RECOMMENDATION: Ultrasound recommended. (I) Approximately 10% of breast cancers are not detected by mammography. A normal mammogram should not delay biopsy of a clinically suspicious abnormality. Electronically Signed: Julius Robin MD at 14:58 EDT ,
== END | disposition home or self-care (01) ==
LOC: OPBI 14:26
PROVIDERS: PCP Family Medicine; Referring Provider Obstetrics & Gynecology; Visit Provider Obstetrics & Gynecology
DX: R92.8 Other abnormal and inconclusive findings on diagnostic imaging of breast (principal)
CPT/HCPCS: 76642; 77065

== ENCOUNTER → 2024-01-27 | Outpatient (CLI) | payer BC, SELFPAY ==
--- NOTE | 2024-01-27 | BRBX_PTH ---
PATIENT: KRYSTA MULLINS LOC: [facility] U#:[id number] AGE/SX: 43/F ROOM: RE01/27/[address]: Dr. Loyd Dubose MD : 1980 BED: DIS: 01/27/2024 SPEC #: [id number] RECD: 01/27/24 09:33 STATUS: TAMI MARY #: [id number] MARÍA: 01/27/24 00:[address]: Loyd Dubose DEPT: SURGICAL PATHOLOGY RECD BY: Sandro Manzano ENTERED: 01/27/24 11:38 SP TYPE: BREAST BX OTHR DR: Dr. Karina Browne MD Tissues: Right breast, NOS Procedures: Surgery Specimen Level IV HEADER OPERATION: Right breast biopsy PRE-OP DIAGNOSIS: Right breast TISSUE SUBMITTED: Right breast tissue Ischemic Time: 1 minute Fixation Time: 11 hours MICROSCOPIC DIAGNOSIS Right breast tissue, core biopsy: Fragments of benign breast tissue extensive dense fibrosis. Negative for atypia or malignancy. See comment. / 01/28/2024 COMMENT Correlation with clinical, radiologic findings and appropriate follow up are necessary. MICROSCOPIC DESCRIPTION Slides are reviewed. GROSS DESCRIPTION Received in fixative is one container labeled with the patient's name and designated Right breast tissue. The specimen consists of multiple elongated pieces of laguna-yellow fibroadipose tissue that in aggregate measure 1.5 x 0.5 x 0.1 cm. The specimen is totally submitted in one cassette. / 01/27/2024 TC:5 CPT:52283
== END | disposition home or self-care (01) ==
LOC: LABSPEC 09:36
PROVIDERS: PCP Family Medicine; Referring Provider Surgery; Visit Provider Surgery
DX: N60.31 Fibrosclerosis of right breast (principal)
CPT/HCPCS: 88305

== ENCOUNTER → 2024-06-11 | Outpatient (CLI) | payer BC, SELFPAY ==
--- NOTE | 2024-06-11 09:01 | US_ITS ---
STUDY: ABDOMINAL ULTRASOUND - RIGHT UPPER QUADRANT; ELASTOGRAPHY REASON FOR VISIT: Female, 43 years old. JUNIOR NAFL D TECHNIQUE: Ultrasound evaluation of the right upper quadrant was performed with real-time and static morel-scale imaging. Point quantification shear wave elastography was performed ([employer]). TECHNICAL QUALITY: Adequate. COMPARISON: Comparison is made with prior study July 16, 2022. FINDINGS: Liver: The liver measures 17.4 cm. There is normal echogenicity of the liver. The bile ducts are within normal limits. There is hepatic color flow. The direction of portal flow is hepatopetal. Stable 3.3 cm x 3.8 cm x 3.2 cm echogenic nodule in the right lobe of liver suggestive of a hemangioma. Median liver stiffness measured 7.2 kPa. Gallbladder: Normal distended gallbladder. The gallbladder wall measures 3.0 mm. There is a negative sonographic Galvez''s sign. There is no pericholecystic fluid. There are no gallstones. Common Bile Duct (C.B.D.): The common bile duct measures 4.0 mm. Pancreas: There is normal echogenicity of the visualized pancreas. There is no demonstrated pancreatic mass or cyst. Right Kidney: Normal size of the right kidney. The right kidney measures 11.8 cm x 6.1 cm x 4.7 cm. Normal renal cortex. The right cortex measures 1.4 cm. There is no demonstrated renal mass or cyst. There is no right hydronephrosis. US/ABD Limited w/ Elastography IMPRESSION: 1. Liver stiffness measures 7. 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 2. Stable echogenic nodule in the right lobe of liver suggestive of hemangioma. Electronically Signed: Chidi Dunham MD at 15:24 EST ,
== END | disposition home or self-care (01) ==
LOC: US 08:57
PROVIDERS: PCP Family Medicine; Referring Provider Internal Medicine; Visit Provider Internal Medicine
DX: K76.0 Fatty (change of) liver, not elsewhere classified (principal); E66.01 Morbid (severe) obesity due to excess calories; D13.4 Benign neoplasm of liver
CPT/HCPCS: 76705; 76981

== ENCOUNTER → 2024-08-01 | Outpatient (CLI) | payer BC, SELFPAY ==
--- NOTE | 2024-08-01 08:53 | US_ITS ---
STUDY: ULTRASOUND BREAST - RIGHT REASON FOR EXAM: Female, 43 years old. 6 month follow-up status post right breast biopsy. TECHNIQUE: Axial and longitudinal images of the RIGHT breast were performed with a high resolution ultrasound transducer. # OF IMAGES: 16 COMPARISON: Comparison is made with prior study January 20, 2024. FINDINGS: RIGHT Breast: Stable 1.2 cm x 1.3 cm x 1 cm well-defined hypoechoic solid nodule in the retroareolar region of the breast. US/Breast Limited Unilateral IMPRESSION: Stable appearance of the focal solid nodule in the retroareolar region of the breast. ASSESSMENT CATEGORY: BIRADS Category 2: Benign. A letter regarding these results will be sent to the patient by the facility within 30 days. Electronically Signed: Chidi Dunham MD at 12:44 EST ,
== END | disposition home or self-care (01) ==
PROVIDERS: PCP Family Medicine; Referring Provider Surgery; Visit Provider Surgery
DX: N63.12 Unspecified lump in the right breast, upper inner quadrant (principal)

== ENCOUNTER → 2025-01-25 | Outpatient (CLI) | payer BC, SELFPAY ==
--- NOTE | 2025-01-25 08:15 | BI_ITS ---
EXAM: SCRN MAMM (CAD)W/ERIC BILAT DATE: 01/25/2025 CLINICAL HISTORY: F, Age 44 y/o , BREAST CANCER SCREENING TECHNIQUE: SCRN MAMM (CAD)W/ERIC BILAT COMPARISON: Prior exam(s) dated 07/22/2024, 01/20/2024, 01/18/2024, 01/06/2023. FINDINGS: TISSUE DENSITY: There are scattered areas of fibroglandular density. Bilateral Breast Mammographic Findings: No significant masses, calcifications or other abnormalities are identified. BI/SCRN MAMM (CAD)W/ERIC BILAT IMPRESSION: There is no mammographic evidence of malignancy. OVERALL FINAL ASSESSMENT BI-RADS 1: NEGATIVE. RECOMMEND ANNUAL MAMMOGRAPHIC SCREENING. RECOMMENDATION: Routine annual follow-up in 1 Year A letter with findings and recommendations will be mailed to the patient. Reading Location: [id number]
== END | disposition home or self-care (01) ==
LOC: OPBI 08:08
PROVIDERS: PCP Family Medicine; Referring Provider Obstetrics & Gynecology; Visit Provider Obstetrics & Gynecology
DX: Z12.31 Encounter for screening mammogram for malignant neoplasm of breast (principal)
CPT/HCPCS: 77063; 77067

== ENCOUNTER → 2025-06-01 | Outpatient (CLI) | payer BC, SELFPAY ==
[2025-06-01 18:29] LABS: AST(SGOT) 23 U/L (<=31); Alanine Aminotransfer ALT/SGPT 13 U/L (<=34); Albumin, Serum 4.6 g/dL (3.5-5.0); Alkaline Phosphatase 98 U/L (35-104); Anion Gap 12 (5-15); BUN 7 mg/dL (4-19); BUN/Creat Ratio 8.3 RATIO (10-20); Calcium,Total 9.6 mg/dL (7.6-11.0); Carbon Dioxide 24.3 mmol/L (21.0-32.0); Chloride 102 mmol/L (98-108); Globulin 3.1 g/dL (2.2-4.2); Glucose 92 mg/dL (70-99); Potassium 3.6 mmol/L (3.3-5.1)
[2025-06-01 18:30] LABS: Ammonia 15.2 umol/L (11-51)
[2025-06-03 04:07] LABS: HEPATITIS B SURFACE AG Negative (Negative); Hep C Antibodies Non Reactive (Non Reactive)
== END | disposition home or self-care (01) ==
LOC: MTLAB 16:01
PROVIDERS: PCP Family Medicine; Referring Provider Family Medicine; Visit Provider Family Medicine
DX: K74.00 Hepatic fibrosis, unspecified (principal)
CPT/HCPCS: 36415; 80053; 80074; 82140

== ENCOUNTER → 2025-07-06 | Outpatient (CLI) | payer BC, SELFPAY ==
--- NOTE | 2025-07-06 08:59 | US_ITS ---
PROCEDURE: ABD LIMITED W/ ELASTOGRAPHY, 07/06/2025 REASON FOR EXAM: FATTY LIVER COMPARISON: 09/11/2023 TECHNIQUE: Grayscale and color Doppler imaging of the right upper quadrant was performed. Elastography was performed for non-invasive assessment of liver tissue stiffness utilizing a [employer] S-shear wave imaging unit. FINDINGS: Liver: Unremarkable echotexture. Echogenic RIGHT lobe lesion measures 3.3 x 3.1 x 2.7 cm likley corresponding to the hemangioma seen on 09/11/2023, better characterized at that time. 18.9 cm in length. Gallbladder: Unremarkable. Reportedly, sonographic Galvez's was negative. Biliary tree: Unremarkable. CBD measures 3 mm. Pancreas: Partially obscured by shadowing bowel gas, grossly unremarkable as visualized. Right kidney: Unremarkable. 11.4 cm in length. Other: No visualized free fluid. Hepatic elastography: Number of measurements: 6. US probe: CA1-7A. EQI median: 4.2 kPa EQI median velocity: 1.16 m/s IQR/Med: 8.4% (kPa) and 4.7% (m/s). If the IQR/Med is IQR/median >30% (for kPa) or >15% in m/s, the variance in the measurements is a large and the accuracy of the measurement may be in question. US/ABD Limited w/ Elastography IMPRESSION: 1. Unremarkable hepatic echotexture. 2. Liver stiffness is 4.2 kPa. Per the below 2020 SRU criteria, this indicates a high probability of being normal. 3. Additional description as above. Assessment is per the Update to the SRU Liver Elastography Consensus Statement (2020) Note that the above assessment of liver fibrosis is vendor-neutral and intended for use in fibrosis related to viral etiologies and non-alcoholic fatty-liver disease (NAFLD); in causes other than viral hepat itis and NAFLD, the cutoff values are currently not well established. In some patients with NAFLD, the cutoff values for cACLD may be lower (7-9 kPa). Note also that in the setting of elevated LFTs, nonfasting or vascular congestion, the stage of lifer fibrosis may be overestimated. Previous U reference values: <1.37 m/s (5.7kPa): No to mild fibrosis 1.37 m/s - 2.2 m/s: Moderate to severe fibrosis >2.2 m/s (15kPa): Significant fibrosis / cirrhosis Reading Location: [id number]
== END | disposition home or self-care (01) ==
LOC: US 08:58
PROVIDERS: PCP Family Medicine; Referring Provider Internal Medicine Gastroenterology; Visit Provider Internal Medicine Gastroenterology
DX: K76.0 Fatty (change of) liver, not elsewhere classified (principal)
CPT/HCPCS: 76705; 76981